=== PATIENT | female | born 1955 | race Hispanic/Latino ===

== ENCOUNTER 2018-08-06 12:43 | Inpatient (IN) | payer BC, OTHER ==
--- NOTE | 2018-08-06 13:35 | ED PDOC ---
HPI: Chest Pain Time Seen by Provider: 08/06/18 13:12 Chief Complaint (Nursing): Chest Pain Chief Complaint (Provider): Chest pain History Per: Patient History/Exam Limitations: no limitations Onset/Duration Of Symptoms: Days (1) Current Symptoms Are (Timing): Still Present Additional History Per: Patient Additional Complaint(s): 63yo female, otherwise well, comes to ER for evaluation of chest pain since last night. Patient states she was at Dr. Melendrez's office for evaluation of the chest pain and the EKG was noted to be abnormal, prompting the ER visit. Patient also reports epigastric abdominal pain as well as nausea and vomiting. She also denies any shortness of breath, leg selling, or diarrhea. No other complaints. PMD: Jeffrey Melendrez Past Medical History Reviewed: Historical Data, Nursing Documentation, Vital Signs Vital Signs: Last Vital Signs Temp 98 F 08/06/18 12:55 Pulse 85 08/06/18 12:55 Resp 18 08/06/18 12:55 BP 135/78 08/06/18 12:55 Pulse Ox 98 08/06/18 12:55 - Medical History PMH: Diverticulitis Denies: Diabetes, HTN - Surgical History Other surgeries: orthopedic surgery - Family History Family History: States: No Known Family Hx - Living Arrangements Living Arrangements: With Family - Immunization History Hx Tetanus Toxoid Vaccination: No Hx Influenza Vaccination: No Hx Pneumococcal Vaccination: No - Home Medications Home Medications: Ambulatory Orders Medication Instructions Recorded Alprazolam [Xanax] 0.5 mg PO Q8 08/06/18 Bisacodyl [Dulcolax] 20 mg PO HS 08/06/18 Omeprazole 40 mg PO DAILY 08/06/18 - Allergies Allergies/Adverse Reactions: Allergies Allergy/AdvReac Type Severity Reaction Status Date / Time No Known Allergies Allergy Verified 08/06/18 12:55 JUDI Risk Score for UA/NSTEMI - JUDI Risk Score Age > 64: NO 3 or more CAD Risk Factors: NO Known CAD (Stenosis greater than 50%): NO Aspirin use in past 7 days: NO Severe Angina: YES EKG ST changes greater than 0.5mm: NO Positive Cardiac Marker: NO JUDI Score: 1 Risk %: 5% Wells Criteria for PE - Wells Criteria for Pulmonary Embolism Clinical Signs and Symptoms of DVT: No P.E is #1 Diagnosis, or Equally Likely: No Heart Rate >100: No Immobilization at least 3 days;Surgery previous 4 weeks: No Previous, objectively diagnosed PE or DVT: No Hemoptysis: No Malignancy w/treatment within 6 months, or palliative: No Total Score: 0 Review of Systems ROS Statement: Except As Marked, All Systems Reviewed And Found Negative Constitutional: Negative for: Fever, Chills Cardiovascular: Positive for: Chest Pain Respiratory: Negative for: Shortness of Breath Gastrointestinal: Positive for: Nausea, Vomiting. Negative for: Diarrhea Neurological: Negative for: Weakness, Numbness Physical Exam - Reviewed Nursing Documentation Reviewed: Yes Vital Signs Reviewed: Yes - Physical Exam Appears: Positive for: Non-toxic, No Acute Distress Head Exam: Positive for: ATRAUMATIC, NORMAL INSPECTION, NORMOCEPHALIC Skin: Positive for: Normal Color Eye Exam: Positive for: Normal appearance Neck: Positive for: Normal, Supple Cardiovascular/Chest: Positive for: Regular Rate, Rhythm, Chest Non Tender Respiratory: Positive for: Normal Breath Sounds. Negative for: Wheezing Gastrointestinal/Abdominal: Positive for: Normal Exam, Soft. Negative for: Tenderness Back: Positive for: Normal Inspection Extremity: Positive for: Normal ROM. Negative for: Pedal Edema Neurologic/Psych: Positive for: Alert, Oriented. Negative for: Motor/Sensory Deficits - Laboratory Results Result Diagrams: 08/07/18 05:04 08/07/18 05:04 - ECG ECG: Positive for: Interpreted By Me, Viewed By Me ECG Rhythm: Positive for: Normal QRS, Sinus Rhythm. Negative for: ST/T Changes Rate: 85 O2 Sat by Pulse Oximetry: 98 (RA) Pulse Ox Interpretation: Normal - Radiology X-Ray: Viewed By Me, Read By Radiologist X-Ray Interpretation: No Acute Disease Medical Decision Making Medical Decision Making: Impression: Chest pain, vomiting Differential: Atypical acs, less likely pancreatitis Plan: -- EKG -- Chest x-ray -- Labs 1536 US Gallbladder ordered due to vomiting and abdominal pain. 1600 Labs reviewed and significant for mild elevation of white blood cells. Patient to be admitted to [facility] for observation. [address] Cifuentes and patient to be admitted under his service. Scribe Attestation: Documented by Lisa Suresh, acting as a scribe for Waldo Hi MD. Provider Scribe Attestation: All medical record entries made by the Scribe were at my direction and personally dictated by me. I have reviewed the chart and agree that the record accurately reflects my personal performance of the history, physical exam, medical decision making, and the department course for this patient. I have also personally directed, reviewed, and agree with the discharge instructions and disposition. Disposition - Clinical Impression Clinical Impression: Acute chest pain, Vomiting - Patient ED Disposition Is Patient to be Admitted: Yes Counseled Patient/Family Regarding: Studies Performed, Diagnosis - Disposition Disposition Time: 16:00 Condition: GUARDED - Pt Status Changed To: Hospital Disposition Of: Observation - POA Present On Arrival: None
[2018-08-06 13:59] LABS: BLOOD UREA NITROGEN 10 mg/dl (7-17); CALCIUM 9.5 mg/dL (8.4-10.2); GFR NON-AFRICAN AMERICAN > 60
[2018-08-06 14:03] LABS: BASO # 0.1 K/uL (0.0-0.2); BASO % 0.7 % (0.0-2.0); EOS % 0.3 % (0.0-4.0); HEMOGLOBIN 14.7 g/dL (12.0-16.0); LYMPH # 1.3 K/uL (1.0-4.3); LYMPH % 8.8 % (20.0-40.0); MEAN CELL VOLUME 95.5 fl (81.0-99.0); MEAN CORPUSCULAR HEMOGLOBIN 30.4 pg (27.0-31.0); MEAN CORPUSCULAR HGB CONC 31.8 g/dL (33.0-37.0); MEAN PLATELET VOLUME 8.6 fl (7.2-11.7); MONO # 0.9 K/uL (0.0-0.8); MONO % 6.3 % (0.0-10.0); NEUT # 12.3 K/uL (1.8-7.0); NEUT % 83.9 % (50.0-75.0); NRBC % 0.1 % (0.0-0.0); PLATELET COUNT 217 K/uL (130-400); RBC 4.84 Mil/uL (3.80-5.20); RED CELL DISTRIBUTION WIDTH 14.1 % (11.5-14.5); WHITE BLOOD COUNT 14.7 K/uL (4.8-10.8)
[2018-08-06 14:11] LABS: B-TYPE NATRIURETIC PEPTIDE 491 pg/ml (0-900)
[2018-08-06 14:34] LABS: ALB/GLOB RATIO 1.3 (1.0-2.1); ALBUMIN 4.2 g/dL (3.5-5.0); BILIRUBIN,DIRECT 0.2 mg/ml (0.0-0.4)
--- NOTE | 2018-08-06 15:22 | RAD ---
Date of service: 08/06/2018 PROCEDURE: CHEST RADIOGRAPH, 1 VIEW HISTORY: chest pain COMPARISON: 01/13/2014 FINDINGS: LUNGS: Clear. PLEURA: No pneumothorax or pleural fluid seen. CARDIOVASCULAR: No aortic atherosclerotic calcification present. No radiographic findings to suggest acute or significant cardiovascular disease. OSSEOUS STRUCTURES: No significant abnormalities. VISUALIZED UPPER ABDOMEN: Normal. OTHER FINDINGS: None. IMPRESSION: No active disease. No acute/significant interval changes.
[2018-08-06 15:56] LABS: BASOPHIL 1 % (0-2); LYMPHOCYTE 11 % (20-50); MONOCYTE 5 % (0-10); NEUTROPHIL 83 % (42-75); PLATELET ESTIMATE NORMAL (NORMAL); TOTAL CELLS COUNTED 100
--- NOTE | 2018-08-06 17:09 | US ---
Date of service: 08/06/2018 HISTORY: epigastric pain vomiting COMPARISON: None. TECHNIQUE: Sonographic evaluation of the right upper quadrant of the abdomen. FINDINGS: LIVER: Measures 13.4 cm in length. Patent portal vein. Portal venous flow: Hepatopetal. Unremarkable echogenicity of the liver parenchyma. No mass. No intrahepatic bile duct dilatation. GALLBLADDER: Cholelithiasis. Negative study for gallbladder wall thickening, pericholecystic fluid, sonographic Littlejohn's sign. Largest stone 1.0 x 1.7 x 1.8 cm. COMMON BILE DUCT: Measures 2.9 mm. No stones. No dilatation. PANCREAS: Obscured by overlying bowel gas. Non diagnostic assessment of the pancreas RIGHT KIDNEY: Measures 5.2 x 10.7 cm in length. Normal echogenicity. No calculus, mass, or hydronephrosis. AORTA: No aneurysmal dilatation. IVC: Unremarkable. OTHER FINDINGS: None . IMPRESSION: Cholelithiasis. No sonographic evidence of acute cholecystitis. Limitations of the current examination: Nondiagnostic study of the pancreas.
[2018-08-06] MEDS ORDERED: Iohexol 240 (50 ml) PO ONE (17:57)
--- NOTE | 2018-08-06 18:26 | CP.PCM.HP ---
History of Present Illness - History of Present Illness History of Present Illness: 63 yo F with hx GERD, diverticulitis, COPD, arthritis, trigger finger, anxiety presented to ED today after being sent by PMD for evaluation of chest pain. Patient states chest pain began around 10 pm last night, when she was not doing anything strenuous, and kept her from falling asleep. Describes the pain as sharp, located substernally, on either side of midline. Pain does not radiate to the back, jaw, neck or either extremity, and she was not diaphoretic. About 2 hrs after onset of chest pain, she began vomiting clear, nonbloody, nonbilious emesis, which she states happened about every hour until morning. She does not associate this vomiting with food, as her last meal was around 4:30 pm, and her last bowel movement was around 2 pm. Last night, she took prilosec, but it did not help, and she did not find anything alleviated or exacerbated the pain/nausea. Normally at baseline, she can walk 7-10 blocks without getting ti red or short of breath. Of note, pt relates she had similar (but less strong) pain about 6 weeks ago, and saw a rail director who wanted to perform an EGD but this has not happened yet due to pt's schedule. Today, she went to her PMDs office regarding the chest pain/nausea/vomiting, and an EKG was done, which patient was told was abnormal, and she was referred to ED. EKG from PMD was reviewed - no acute specific changes are able to be appreciated due to overall quality of exam. PMD: Dr. Camacho Med hx: GERD, diverticulitis, COPD, arthritis, trigger finger, anxiety Surg hx: L foot surgery after breaking bones in feet Soc hx: 15 cig/day since age 17 (46 yrs); denies alcohol or illicit drug use Family hx: mother w/ double CABG, diabetes, breast ca; no other hx cardiac disorders in family Allergies: NKDA Meds: xanax 0.5 q8h for anxiety, dulcolax, prilosec In ED: vitals stable, BP 135/78, HR 97, afebrile at 98F, O2 on RA 98, RR 18 Troponin neg x1 EKG done in ED: sinus at 86 bpm, no specific acute ST changes Lipase 51 proBNP 491 Mild leukocytosis at 14.7 No marked electrolyte derangement CXR : no active disease Gallbladder u/s - pending read Present on Admission - Present on Admission Any Indicators Present on Admission: No Review of Systems - Review of Systems All systems: reviewed and no additional remarkable complaints except - Constitutional Constitutional: absent: Excessive Sweating - Cardiovascular Cardiovascular: Chest Pain. absent: Diaphoresis, Dyspnea - Gastrointestinal Gastrointestinal: Abdominal Pain, Constipation, Heartburn, Vomiting. absent: Coffee Ground Emesis Past Patient History - Past Social History Smoking Status: Heavy Smoker > 10 Cigarettes Daily Alcohol: None Home Situation {Lives}: Alone - CARDIAC Hx Hypertension: No - PULMONARY Hx Tuberculosis: No - GASTROINTESTINAL Hx Diverticulitis: Yes - PSYCHIATRIC Hx Substance Use: No - ANESTHESIA Hx Anesthesia: Yes Hx Anesthesia Reactions: No Hx Malignant Hyperthermia: No Meds Allergies/Adverse Reactions: Allergies Allergy/AdvReac Type Severity Reaction Status Date / Time No Known Allergies Allergy Verified 08/06/18 12:55 Physical Exam - Constitutional Appears: Non-toxic, No Acute Distress - Head Exam Head Exam: ATRAUMATIC, NORMAL INSPECTION - Eye Exam Eye Exam: Normal appearance - ENT Exam ENT Exam: Mucous Membranes Dry. absent: Mucous Membranes Moist - Neck Exam Neck exam: Positive for: Full Rom Additional comments: supple - Respiratory Exam Respiratory Exam: Prolonged Expiratory Phase Additional comments: air movement equal bilaterally - Cardiovascular Exam Cardiovascular Exam: REGULAR RHYTHM, +S1, +S2 - GI/Abdominal Exam GI & Abdominal Exam: Normal Bowel Sounds, Soft, Tenderness (epigastrum and RUQ) - Extremities Exam Extremities exam: Positive for: normal capillary refill, normal inspection. Negative for: calf tenderness, pedal edema - Back Exam Back exam: NORMAL INSPECTION. absent: CVA tenderness (L), CVA tenderness (R) - Neurological Exam Neurological exam: Alert, Oriented x3 - Skin Skin Exam: Dry, Warm Results - Vital Signs Recent Vital Signs: Last Vital Signs Temp 98 F 08/06/18 12:55 Pulse 85 08/06/18 16:53 Resp 18 08/06/18 12:55 BP 135/78 08/06/18 12:55 Pulse Ox 98 08/06/18 16:53 - Labs Result Diagrams: 08/06/18 13:40 08/06/18 13:40 Labs: Laboratory Results - last 24 hr 08/06/18 08/06/18 08/06/18 13:40 13:40 14:19 WBC 14.7 H RBC 4.84 Hgb 14.7 Hct 46.3 MCV 95.5 MCH 30.4 MCHC 31.8 L RDW 14.1 Plt Count 217 MPV 8.6 Neut % (Auto) 83.9 H Lymph % (Auto) 8.8 L [place] % (Auto) 6.3 Eos % (Auto) 0.3 Baso % (Auto) 0.7 Neut # (Auto) 12.3 H Lymph # (Auto) 1.3 [place] # (Auto) 0.9 H Eos # (Auto) 0.0 Baso # (Auto) 0.1 Neutrophils % (Manual) 83 H Lymphocytes % (Manual) 11 L Monocytes % (Manual) 5 Basophils % (Manual) 1 Platelet Estimate Normal RBC Morphology Normal Sodium 138 Potassium 4.9 Chloride 109 H Carbon Dioxide 23 Anion Gap 11 BUN 10 Creatinine 0.9 Est GFR ( Amer) > 60 Est GFR (Non-Af Amer) > 60 Random Glucose 113 H Calcium 9.5 Total Bilirubin 0.8 Direct Bilirubin 0.2 AST 18 ALT 18 Alkaline Phosphatase 112 Troponin I < 0.0120 NT-Pro-B Natriuret Pep 491 Total Protein 7.5 Albumin 4.2 Globulin 3.3 Albumin/Globulin Ratio 1.3 Lipase 51 Assessment & Plan - Assessment and Plan (Free Text) Assessment: 63 yo F with hx GERD, diverticulitis, COPD, arthritis, trigger finger, anxiety, admitted for observation due to chest pain, nausea, vomiting; and to rule out ACS. Initial troponin negative, and EKG without specific ST changes. Plan: 1. Chest pain, r/o ACS - Admitted to telemetry; continuous monitoring - Trend troponin Q6 hrs x2 - Repeat EKG in the am 2. Nausea/Vomiting - Improved - Trial liquid diet - Zofran 4 mg Q4h PRN - Gallbladder u/s read pending - CT abd/pelvis with PO contrast - CMP in am 3. Leukocytosis - Mild elevation 14.7 - Possibly secondary to stress response - Follow up on CBC 4. GERD - Protonix 40 mg daily 5. Diverticulitis - CT abd/pelvis with PO contrast 6. prison tobacco use - Nicotine patch 21 mg/24 hrs 7. Anxiety - Resume home dose xanax 0.5 mg Q8h 8. Diet - Trial liquid diet 9. DVT prophylaxis - SCD for now
[2018-08-06] MEDS ORDERED: Iohexol 240 (50 ml) ONE (19:20)
[2018-08-07 05:13] LABS: BASO # 0.1 K/uL (0.0-0.2); BASO % 0.9 % (0.0-2.0); EOS # 0.1 K/uL (0.0-0.7); EOS % 0.6 % (0.0-4.0); HEMOGLOBIN 14.2 g/dL (12.0-16.0); LYMPH # 1.1 K/uL (1.0-4.3); LYMPH % 7.7 % (20.0-40.0); MEAN CELL VOLUME 94.6 fl (81.0-99.0); MEAN CORPUSCULAR HEMOGLOBIN 30.9 pg (27.0-31.0); MEAN CORPUSCULAR HGB CONC 32.6 g/dL (33.0-37.0); MEAN PLATELET VOLUME 8.8 fl (7.2-11.7); MONO # 1.2 K/uL (0.0-0.8); MONO % 8.7 % (0.0-10.0); NEUT # 11.4 K/uL (1.8-7.0); NEUT % 82.1 % (50.0-75.0); RBC 4.59 Mil/uL (3.80-5.20); WHITE BLOOD COUNT 13.9 K/uL (4.8-10.8)
[2018-08-07 05:27] LABS: ALB/GLOB RATIO 1.1 (1.0-2.1); ALBUMIN 3.8 g/dL (3.5-5.0); ALT/SGPT 24 U/L (9-52); AST/SGOT 28 U/L (14-36); BLOOD UREA NITROGEN 8 mg/dl (7-17); GFR NON-AFRICAN AMERICAN > 60
--- NOTE | 2018-08-07 06:55 | CARD ---
APPROVED REPORT Date of service: 08/06/2018 EKG Measurement Heart [id number] <Conclusion> Sinus rhythm with short DE with occasional premature ventricular complexes Otherwise normal ECG
--- NOTE | 2018-08-07 07:16 | CP.PCM.PN ---
Subjective - Date & Time of Evaluation Date of Evaluation: 08/07/18 Time of Evaluation: 06:45 - Subjective Subjective: pt alert oriented x3 no chest pain no vomiting no nausea some muscle discomfort below the ribs from vomiting over the weekend Objective - Vital Signs/Intake and Output Vital Signs (last 24 hours): Temp Pulse Resp BP Pulse Ox 99.4 F 87 20 109/70 94 L 08/07/18 05:00 08/07/18 05:00 08/07/18 05:00 08/07/18 05:00 08/07/18 05:00 - Medications Medications: Current Medications Alprazolam (Xanax) 0.5 mg PO Q8 RON Last Admin: 08/07/18 00:58 Dose: 0.5 mg Nicotine (Nicoderm Cq) 1 patch TD DAILY [facility] Ondansetron HCl (Zofran Inj) 4 mg IVP Q4 PRN PRN Reason: Nausea/Vomiting Pantoprazole Sodium (Protonix Ec Tab) 40 mg PO DAILY RON - Labs Labs: 08/07/18 05:04 08/07/18 05:04 - Constitutional Appears: No Acute Distress - Eye Exam Eye Exam: EOMI, Normal appearance - ENT Exam ENT Exam: Mucous Membranes Moist - Neck Exam Neck Exam: Normal Inspection. absent: Meningismus, Tenderness, Thyromegaly - Respiratory Exam Respiratory Exam: Chest Wall Tenderness, Clear to Ausculation Bilateral. absen t: Rales, Rhonchi, Wheezes, Respiratory Distress - Cardiovascular Exam Cardiovascular Exam: REGULAR RHYTHM - GI/Abdominal Exam GI & Abdominal Exam: Soft, Normal Bowel Sounds - Extremities Exam Extremities Exam: Normal Capillary Refill, Normal Inspection. absent: Calf Tenderness, Pedal Edema, Tenderness - Back Exam Back Exam: NORMAL INSPECTION - Neurological Exam Neurological Exam: Alert, Awake, Oriented x3 - Psychiatric Exam Psychiatric exam: Normal Affect - Skin Skin Exam: Normal Color, Warm Assessment and Plan (1) Chest pain Status: Acute (2) Gastritis Status: Acute (3) Vomiting Status: Resolved - Assessment and Plan (Free Text) Assessment: troponin negative x 3 await cardiac eval if cleared cand go home return to the office to see Dr Melendrez
[2018-08-07] MEDS: Pantoprazole 40 mg EC Tab PO SCH (09:06)
--- NOTE | 2018-08-07 09:50 | CP.PCM.CON ---
History of Present Illness - History of Present Illness History of Present Illness: THE PATIENT IS A 63 YEAR OLD FEMALE WITH A HISTORY OF GERDS, DIVERTICULOSIS, ARTHRITIS AND ANXIETY. SHE IS NOW ADMITTED WITH ABDOMINAL PAIN, ANUSEA AND VOMITING AND ALSO HAD CHEST PAIN ALONG TO LOWER RIB CAGE AREA THAT SHE DESCRIBES A SORENESS. IT IS NOT PRESENT NOW AND THERE WASN'T ANY RADIATION. SHE HAD SIMILAR PAIN ABOUT SIX WEEKS AGO. SHE DOES NOT HAVE A HISTORY OF CAD OR TYPICAL CHEST PAIN. I WAS ASKED TO SEE HER FOR THE CHEST PAIN. Past Patient History - Past Medical History & Family History Past Medical History?: Yes - Past Social History Smoking Status: Heavy Smoker > 10 Cigarettes Daily - CARDIAC Hx Cardiac Disorders: No - PULMONARY Hx Respiratory Disorders: Yes - NEUROLOGICAL Hx Neurological Disorder: No - HEENT Hx HEENT Problems: No - RENAL Hx Chronic Kidney Disease: No - ENDOCRINE/METABOLIC Hx Endocrine Disorders: No - HEMATOLOGICAL/ONCOLOGICAL Hx Blood Disorders: No - INTEGUMENTARY Hx Dermatological Problems: No - MUSCULOSKELETAL/RHEUMATOLOGICAL Hx Musculoskeletal Disorders: Yes - GASTROINTESTINAL Hx Gastrointestinal Disorders: Yes Hx Diverticulitis: Yes Hx Gastroesophageal Reflux: Yes - GENITOURINARY/GYNECOLOGICAL Hx Genitourinary Disorders: No - PSYCHIATRIC Hx Psychophysiologic Disorder: Yes - SURGICAL HISTORY Hx Surgeries: Yes Other/Comment: left foot sx - ANESTHESIA Hx Anesthesia: Yes Hx Anesthesia Reactions: No Hx Malignant Hyperthermia: No Meds Home Medications: Home Medication List Medication Instructions Recorded Confirmed Type Amoxicillin/Clavulanate [Augmentin 1 tab PO Q12 #14 tab 08/12/18 Rx 875 MG-125 MG] oxyCODONE/Acetaminophen [Percocet 1 ea PO Q4 PRN #30 tab 08/12/18 Rx 5/325 mg Tab] Allergies/Adverse Reactions: Allergies Allergy/AdvReac Type Severity Reaction Status Date / Time No Known Allergies Allergy Verified 08/06/18 12:55 - Medications Medications: Current Medications Alprazolam (Xanax) 0.5 mg PO Q8 [facility] Last Admin: 08/07/18 09:06 Dose: 0.5 mg Nicotine (Nicoderm Cq) 1 patch TD DAILY [facility] Last Admin: 08/07/18 09:06 Dose: 1 patch Ondansetron HCl (Zofran Inj) 4 mg IVP Q4 PRN PRN Reason: Nausea/Vomiting Pantoprazole Sodium (Protonix Ec Tab) 40 mg PO DAILY [facility] Last Admin: 08/07/18 09:06 Dose: 40 mg Physical Exam - Respiratory Exam Respiratory Exam: Clear to Auscultation Bilateral - Cardiovascular Exam Cardiovascular Exam: REGULAR RHYTHM, +S1, +S2 - Extremities Exam Extremities exam: Positive for: normal inspection - Additional Findings Additional findings: EKG NSR, I PVC TROPONINS NEGATIVE X [address] REPORT PENDING ABDOMINAL US CHOLELITHIASIS WITHOUT CHOLECYSTITIS Results - Vital Signs Recent Vital Signs: Last Vital Signs Temp 99.8 F H 08/07/18 09:13 Pulse 88 08/07/18 09:13 Resp 18 08/07/18 09:13 BP 118/66 08/07/18 09:13 Pulse Ox 96 08/07/18 09:13 - Labs Result Diagrams: 08/12/18 08:33 08/12/18 05:25 Labs: Laboratory Results - last 24 hr 08/06/18 08/06/18 08/06/18 13:40 13:40 14:19 WBC 14.7 H RBC 4.84 Hgb 14.7 Hct 46.3 MCV 95.5 MCH 30.4 MCHC 31.8 L RDW 14.1 Plt Count 217 MPV 8.6 Neut % (Auto) 83.9 H Lymph % (Auto) 8.8 L [place] % (Auto) 6.3 Eos % (Auto) 0.3 Baso % (Auto) 0.7 Neut # (Auto) 12.3 H Lymph # (Auto) 1.3 [place] # (Auto) 0.9 H Eos # (Auto) 0.0 Baso # (Auto) 0.1 Neutrophils % (Manual) 83 H Lymphocytes % (Manual) 11 L Monocytes % (Manual) 5 Basophils % (Manual) 1 Platelet Estimate Normal RBC Morphology Normal Sodium 138 Potassium 4.9 Chloride 109 H Carbon Dioxide 23 Anion Gap 11 BUN 10 Creatinine 0.9 Est GFR ( Amer) > 60 Est GFR (Non-Af Amer) > 60 Random Glucose 113 H Calcium 9.5 Total Bilirubin 0.8 Direct Bilirubin 0.2 AST 18 ALT 18 Alkaline Phosphatase 112 Troponin I < 0.0120 NT-Pro-B Natriuret Pep 491 Total Protein 7.5 Albumin 4.2 Globulin 3.3 Albumin/Globulin Ratio 1.3 Lipase 51 08/07/18 08/07/18 08/07/18 01:13 05:04 05:04 WBC 13.9 H RBC 4.59 Hgb 14.2 Hct 43.4 MCV 94.6 MCH 30.9 MCHC 32.6 L RDW 14.0 Plt Count 205 MPV 8.8 Neut % (Auto) 82.1 H Lymph % (Auto) 7.7 L [place] % (Auto) 8.7 Eos % (Auto) 0.6 Baso % (Auto) 0.9 Neut # (Auto) 11.4 H Lymph # (Auto) 1.1 [place] # (Auto) 1.2 H Eos # (Auto) 0.1 Baso # (Auto) 0.1 Neutrophils % (Manual) Lymphocytes % (Manual) Monocytes % (Manual) Basophils % (Manual) Platelet Estimate RBC Morphology Sodium 136 Potassium 4.1 Chloride 104 Carbon Dioxide 25 Anion Gap 11 BUN 8 Creatinine 0.8 Est GFR ( Amer) > 60 Est GFR (Non-Af Amer) > 60 Random Glucose 112 H Calcium 9.0 Total Bilirubin 1.2 Direct Bilirubin AST 28 ALT 24 Alkaline Phosphatase 103 Troponin I < 0.0120 < 0.0120 NT-Pro-B Natriuret Pep Total Protein 7.2 Albumin 3.8 Globulin 3.4 Albumin/Globulin Ratio 1.1 Lipase Assessment & Plan - Assessment and Plan (Free Text) Assessment: CHEST PAIN-CHEST PAIN FREE NOW AND WITHOUT ANY ACUTE CHANGES ON EKG AND TROPONINS ARE NEGATIVE ABDOMINAL PAIN ANXIETY Plan: THE PATIENT WAS ADMITTED TO ON TELEMETRY EKGS AND TROPONINS WERE ORDERED STRESS TEST WAS RECOMMENDED BUT PATIENT DOESN'T WANT TO DO IT TODAY-IT CAN BE DONE OUT PATIENT ASA GIVEN IN ER AND WILL CONTINUE ASA 81 MGS DAILY UNTIL SHE HAS HER STRESS TEST
--- NOTE | 2018-08-07 12:48 | CT ---
Date of service: 08/06/2018 PROCEDURE: CT Abdomen and Pelvis with contrast HISTORY: abd pain, vomiting, hx divertivulitis COMPARISON: None available. TECHNIQUE: CT scan of the abdomen and pelvis was performed without administration of intravenous contrast. Oral contrast was administered. Coronal and sagittal reformatted images were obtained. Radiation dose: Total exam DLP = 989.22 mGy-cm. This CT exam was performed using one or more of the following dose reduction techniques: Automated exposure control, adjustment of the mA and/or kV according to patient size, and/or use of iterative reconstruction technique. FINDINGS: LOWER THORAX: There is dependent atelectasis in the lung bases and subsegmental atelectasis in the left lower lobe. LIVER: Normal in size with homogeneous enhancement. No gross lesion or ductal dilatation. GALLBLADDER AND BILE DUCTS: The gallbladder is distended and there are non cord C5 gallstones. There is diffuse gallbladder wall thickening and edema with significant pericholecystic inflammatory fat stranding. PANCREAS: Normal in size with homogeneous enhancement. No gross lesion or ductal dilatation. SPLEEN: Normal in size and appearance. ADRENALS: No discrete nodule. KIDNEYS AND URETERS: Normal in size with homogeneous enhancement. No hydronephrosis. No solid mass. VASCULATURE: No aortic aneurysm. BOWEL: Evaluation of the bowel is limited in the absence of oral contrast. The small bowel loops are normal in caliber. There is left colonic diverticulosis without CT evidence for acute diverticulitis. No bowel wall thickening or obstruction. APPENDIX: Normal appendix. PERITONEUM: No free fluid. No free air. LYMPH NODES: No enlarged lymph nodes. BLADDER: Well distended and normal in appearance. REPRODUCTIVE: The uterus is normal in size. BONES: No acute fracture. Within normal limits for the patient's age. OTHER FINDINGS: There is a small sliding hiatal hernia. IMPRESSION: Acute calculus cholecystitis. Colonic diverticulosis without CT evidence for acute diverticulitis. A preliminary report was provided by [facility].
--- NOTE | 2018-08-07 14:01 | CP.PCM.CON ---
<Jeff Aguilar - Last Filed: 08/07/18 13:57> History of Present Illness - History of Present Illness History of Present Illness: Surgery 63 F w PMH of anxiety and diverticulosis came with epigastric abdominal pain that started 3 days ago. Pain is located on upper abdomen and RUQ. Pain is exacerbated with food. Had multiple episodes of vomiting. Non bloody non bilious. Denies fever, SOB, Diarrhea, hematochezia, hematemesis, Dysuria, hematuria, recent weight loss. Pt had similar episodes 6 month ago. She saw a emergency response officer who wanted to perform an EGD but this has not happened yet due to pt's schedule. Surgery is consulted to evaluated for cholecystitis Med hx: GERD, diverticulitis, COPD, arthritis, trigger finger, anxiety Surg hx: L foot surgery after breaking bones in feet Soc hx: 15 cig/day since age 17 (46 yrs); denies alcohol or illicit drug use Family hx: mother w/ double CABG, diabetes, breast ca; no other hx cardiac disorders in family Allergies: NKDA Meds: xanax 0.5 q8h for anxiety, dulcolax, prilosec Review of Systems - Review of Systems Review of Systems: See HPI Past Patient History - Past Medical History & Family History Past Medical History?: Yes - Past Social History Smoking Status: Heavy Smoker > 10 Cigarettes Daily - CARDIAC Hx Hypertension: No - PULMONARY Hx Respiratory Disorders: Yes - NEUROLOGICAL Hx Neurological Disorder: No - HEENT Hx HEENT Problems: No - RENAL Hx Chronic Kidney Disease: No - ENDOCRINE/METABOLIC Hx Endocrine Disorders: No - HEMATOLOGICAL/ONCOLOGICAL Hx Blood Disorders: No - INTEGUMENTARY Hx Dermatological Problems: No - MUSCULOSKELETAL/RHEUMATOLOGICAL Hx Musculoskeletal Disorders: Yes - GASTROINTESTINAL Hx Diverticulitis: Yes - GENITOURINARY/GYNECOLOGICAL Hx Genitourinary Disorders: No - PSYCHIATRIC Hx Psychophysiologic Disorder: Yes - SURGICAL HISTORY Hx Surgeries: Yes Other/Comment: left foot sx - ANESTHESIA Hx Anesthesia: Yes Hx Anesthesia Reactions: No Hx Malignant Hyperthermia: No Meds Allergies/Adverse Reactions: Allergies Allergy/AdvReac Type Severity Reaction Status Date / Time No Known Allergies Allergy Verified 08/06/18 12:55 - Medications Medications: Current Medications Acetaminophen (Tylenol 325mg Tab) 650 mg PO Q6 PRN PRN Reason: Pain, Mild (1-3) Last Admin: 08/07/18 10:05 Dose: 650 mg Alprazolam (Xanax) 0.5 mg PO Q8 [facility] Last Admin: 08/07/18 09:06 Dose: 0.5 mg Aspirin (Ecotrin) 81 mg PO DAILY [facility] Ceftriaxone Sodium 1 gm/ (Sodium Chloride) 100 mls @ 100 mls/hr IVPB DAILY [facility]; Protocol Nicotine (Nicoderm Cq) 1 patch TD DAILY [facility] Last Admin: 08/07/18 09:06 Dose: 1 patch Ondansetron HCl (Zofran Inj) 4 mg IVP Q4 PRN PRN Reason: Nausea/Vomiting Pantoprazole Sodium (Protonix Ec Tab) 40 mg PO DAILY [facility] Last Admin: 08/07/18 09:06 Dose: 40 mg Physical Exam - Constitutional Appears: No Acute Distress - Head Exam Head Exam: ATRAUMATIC, NORMAL INSPECTION, NORMOCEPHALIC - Eye Exam Eye Exam: EOMI, Normal appearance, PERRL Pupil Exam: NORMAL ACCOMODATION, PERRL - ENT Exam ENT Exam: Mucous Membranes Moist, Normal Exam - Neck Exam Neck exam: Positive for: Normal Inspection - Respiratory Exam Respiratory Exam: NORMAL BREATHING PATTERN - Cardiovascular Exam Cardiovascular Exam: REGULAR RHYTHM - GI/Abdominal Exam GI & Abdominal Exam: Soft, Tenderness. absent: Distended, Firm, Guarding, Hernia, Rebound (RUQ TTP ), Rigid - Extremities Exam Extremities exam: Positive for: full ROM, normal inspection - Back Exam Back exam: NORMAL INSPECTION - Neurological Exam Neurological exam: Alert, Normal Gait, Oriented x3, Reflexes Normal - Psychiatric Exam Psychiatric exam: Normal Affect, Normal Mood - Skin Skin Exam: Dry, Intact, Normal Color, Warm Results - Vital Signs Recent Vital Signs: Last Vital Signs Temp 99.8 F H 08/07/18 09:13 Pulse 85 08/07/18 12:53 Resp 18 08/07/18 09:13 BP 118/66 08/07/18 09:13 Pulse Ox 98 08/07/18 12:53 - Labs Result Diagrams: 08/07/18 05:04 08/07/18 05:04 Labs: Laboratory Results - last 24 hr 08/06/18 08/06/18 08/06/18 13:40 13:40 14:19 WBC 14.7 H RBC 4.84 Hgb 14.7 Hct 46.3 MCV 95.5 MCH 30.4 MCHC 31.8 L RDW 14.1 Plt Count 217 MPV 8.6 Neut % (Auto) 83.9 H Lymph % (Auto) 8.8 L [place] % (Auto) 6.3 Eos % (Auto) 0.3 Baso % (Auto) 0.7 Neut # (Auto) 12.3 H Lymph # (Auto) 1.3 [place] # (Auto) 0.9 H Eos # (Auto) 0.0 Baso # (Auto) 0.1 Neutrophils % (Manual) 83 H Lymphocytes % (Manual) 11 L Monocytes % (Manual) 5 Basophils % (Manual) 1 Platelet Estimate Normal RBC Morphology Normal Sodium 138 Potassium 4.9 Chloride 109 H Carbon Dioxide 23 Anion Gap 11 BUN 10 Creatinine 0.9 Est GFR ( Amer) > 60 Est GFR (Non-Af Amer) > 60 Random Glucose 113 H Calcium 9.5 Total Bilirubin 0.8 Direct Bilirubin 0.2 AST 18 ALT 18 Alkaline Phosphatase 112 Troponin I < 0.0120 NT-Pro-B Natriuret Pep 491 Total Protein 7.5 Albumin 4.2 Globulin 3.3 Albumin/Globulin Ratio 1.3 Lipase 51 08/07/18 08/07/18 08/07/18 01:13 05:04 05:04 WBC 13.9 H RBC 4.59 Hgb 14.2 Hct 43.4 MCV 94.6 MCH 30.9 MCHC 32.6 L RDW 14.0 Plt Count 205 MPV 8.8 Neut % (Auto) 82.1 H Lymph % (Auto) 7.7 L [place] % (Auto) 8.7 Eos % (Auto) 0.6 Baso % (Auto) 0.9 Neut # (Auto) 11.4 H Lymph # (Auto) 1.1 [place] # (Auto) 1.2 H Eos # (Auto) 0.1 Baso # (Auto) 0.1 Neutrophils % (Manual) Lymphocytes % (Manual) Monocytes % (Manual) Basophils % (Manual) Platelet Estimate RBC Morphology Sodium 136 Potassium 4.1 Chloride 104 Carbon Dioxide 25 Anion Gap 11 BUN 8 Creatinine 0.8 Est GFR ( Amer) > 60 Est GFR (Non-Af Amer) > 60 Random Glucose 112 H Calcium 9.0 Total Bilirubin 1.2 Direct Bilirubin AST 28 ALT 24 Alkaline Phosphatase 103 Troponin I < 0.0120 < 0.0120 NT-Pro-B Natriuret Pep Total Protein 7.2 Albumin 3.8 Globulin 3.4 Albumin/Globulin Ratio 1.1 Lipase Assessment & Plan - Assessment and Plan (Free Text) Assessment: CHolecystitis Leukocytosis 15k -NPO -IVF -ABX -pain/nausea control -Possible OR Will DW Dr. Glover <Tommy Armijo - Last Filed: 08/07/18 16:56> History of Present Illness - History of Present Illness History of Present Illness: Patient was seen and examined at the bedside. Agree with resident's note above. Meds - Medications Medications: Current Medications Acetaminophen (Tylenol 325mg Tab) 650 mg PO Q6 PRN PRN Reason: Pain, Mild (1-3) Last Admin: 08/07/18 16:31 Dose: 650 mg Alprazolam (Xanax) 0.5 mg PO Q8 [facility] Last Admin: 08/07/18 16:32 Dose: 0.5 mg Aspirin (Ecotrin) 81 mg PO DAILY [facility] Hydromorphone HCl (Dilaudid) 0.5 mg IVP Q4 PRN PRN Reason: Pain, severe (8-10) Dextrose/Sodium Chloride (Dextrose 5%/0.45% Ns 1000 Ml) 1,000 mls @ 125 mls/hr IV .Q8H [facility] Stop: 08/08/18 14:14 Last Admin: 08/07/18 16:25 Dose: 125 mls/hr Ampicillin Sodium/Sulbactam (Sodium 1.5 gm/ Sodium Chloride) 100 mls @ 100 mls /hr IVPB Q6 [facility]; Protocol Nicotine (Nicoderm Cq) 1 patch TD DAILY [facility] Last Admin: 08/07/18 09:06 Dose: 1 patch Ondansetron HCl (Zofran Inj) 4 mg IVP Q4 PRN PRN Reason: Nausea/Vomiting Pantoprazole Sodium (Protonix Ec Tab) 40 mg PO DAILY [facility] Last Admin: 08/07/18 09:06 Dose: 40 mg Physical Exam - GI/Abdominal Exam Additional comments: soft, RUQ tenderness, ND, BS+, no rebound, no guarding, positive Littlejohn's sign Results - Vital Signs Recent Vital Signs: Last Vital Signs Temp 97.9 F 08/07/18 16:46 Pulse 84 08/07/18 16:46 Resp 16 08/07/18 16:46 BP 112/74 08/07/18 16:46 Pulse Ox 99 08/07/18 16:46 - Labs Result Diagrams: 08/07/18 05:04 08/07/18 05:04 Labs: Laboratory Results - last 24 hr 08/07/18 08/07/18 08/07/18 01:13 05:04 05:04 WBC 13.9 H RBC 4.59 Hgb 14.2 Hct 43.4 MCV 94.6 MCH 30.9 MCHC 32.6 L RDW 14.0 Plt Count 205 MPV 8.8 Neut % (Auto) 82.1 H Lymph % (Auto) 7.7 L [place] % (Auto) 8.7 Eos % (Auto) 0.6 Baso % (Auto) 0.9 Neut # (Auto) 11.4 H Lymph # (Auto) 1.1 [place] # (Auto) 1.2 H Eos # (Auto) 0.1 Baso # (Auto) 0.1 Sodium 136 Potassium 4.1 Chloride 104 Carbon Dioxide 25 Anion Gap 11 BUN 8 Creatinine 0.8 Est GFR ( Amer) > 60 Est GFR (Non-Af Amer) > 60 Random Glucose 112 H Calcium 9.0 Total Bilirubin 1.2 AST 28 ALT 24 Alkaline Phosphatase 103 Troponin I < 0.0120 < 0.0120 Total Protein 7.2 Albumin 3.8 Globulin 3.4 Albumin/Globulin Ratio 1.1 - Imaging and Cardiology CT scan - abdomen Status: Image reviewed by me, Report reviewed by me Assessment & Plan - Assessment and Plan (Free Text) Plan: - Clear liquid diet - Stop Rocephine, start Unasyn - Pain control - For stress test tomorrow - If patient is cleared by cardiology will likely do cholecystectomy on 08/09/18 - Repeat labs in am - Will follow - Hold any anticoagulation
[2018-08-07] MEDS: Dextrose 5%/0.45% NS 1,000 ML IV SCH ×2 (16:25→23:20)
--- NOTE | 2018-08-07 20:36 | CARD ---
APPROVED REPORT Date of service: 08/07/2018 EXAM: Two-dimensional and M-mode echocardiogram with Doppler and color Doppler. Other Information Quality : GoodRhythm : NSR INDICATION Chest Pain 2D DIMENSIONS IVSd0.98 (0.7-1.1cm)LVDd4.53 (3.9-5.9cm) LVOT Diameter2.35 (1.8-2.4cm)PWd0.94 (0.7-1.1cm) IVSs1.18 (0.8-1.2cm)LVDs3.36 (2.5-4.0cm) FS (%) 25.8 %PWs1.24 (0.8-1.2cm) M-Mode DIMENSIONS Left Atrium (MM)4.50 (2.5-4.0cm)IVSd1.00 (0.7-1.1cm) Aortic Root2.88 (2.2-3.7cm)LVDd5.26 (4.0-5.6cm) Aortic Cusp Exc.1.97 (1.5-2.0cm)PWd1.03 (0.7-1.1cm) IVSs1.47 cmFS (%) 30 % LVDs3.68 (2.0-3.8cm)PWs1.26 cm Aortic Valve AoV Peak Jteqpcbf387.0cm/Griselda Peak GR.12mmHgLVOT Peak Xkdkozoh011.2cm/s LVOT VTI19.64cmAVA (VMAX)1.30cm2 Mitral Valve MV E Ndrupini16.8cm/sMV DECEL PCPN565jkDG A Vxrujcog69.8cm/s MV ZMA10fcF/A ratio1.0MVA (PHT)2.69cm2 TDI Lateral E' Peak V12.22cm/sMedial E' Peak V6.19cm/sE/Lateral E'6.0 E/Medial E'11.8 Tricuspid Valve TR Peak Sfewuemc451wm/sRAP LXURFQOI29pkJbUU Peak Gr.18mmHg IPHO52kcXo LEFT VENTRICLE The left ventricle is normal size. There is normal left ventricular wall thickness. The left ventricular systolic function is normal. The estimated ejection fraction is 55-60% No regional wall motion abnormalities noted.. Transmitral Doppler flow pattern is Grade I-abnormal relaxation pattern. No left ventricle thrombus noted on this study. There is no ventricular septal defect visualized. There is no left ventricular aneurysm. There is no mass noted in the left ventricle. RIGHT VENTRICLE The right ventricle is normal size. There is normal right ventricular wall thickness. The right ventricular systolic function is normal. ATRIA The left atrium is mildly dilated. The right atrium size is normal. The interatrial septum is intact with no evidence for an atrial septal defect. AORTIC VALVE The aortic valve is normal in structure. No aortic regurgitation is present. There is no aortic valvular stenosis. There is no aortic valvular vegetation. MITRAL VALVE The mitral valve is normal in structure. There is no evidence of mitral valve prolapse. There is no mitral valve stenosis. There is no mitral valve regurgitation noted. TRICUSPID VALVE The tricuspid valve is normal in structure. There is mild tricuspid valve regurgitation noted. RVSP is calculated at 28 mm Hg. There is no tricuspid valve prolapse or vegetation. There is no tricuspid valve stenosis. PULMONIC VALVE The pulmonary valve is normal in structure. There is no pulmonic valvular regurgitation. There is no pulmonic valvular stenosis. GREAT VESSELS The aortic root is normal in size. The ascending aorta is normal in size. The pulmonary artery is normal. The IVC is normal in size and collapses >50% with inspiration. PERICARDIAL EFFUSION There is no pericardial effusion. There is no pleural effusion. <Conclusion> The estimated ejection fraction is 55-60% Transmitral Doppler flow pattern is Grade I-abnormal relaxation pattern. The left atrium is mildly dilated. There is mild tricuspid valve regurgitation noted. RVSP is calculated at 28 mm Hg.
--- NOTE | 2018-08-07 20:49 | CARD ---
APPROVED REPORT Date of service: 08/07/2018 EKG Measurement Heart [id number] <Conclusion> Normal sinus rhythm Normal ECG
[2018-08-08 06:11] LABS: BASO # 0.1 K/uL (0.0-0.2); BASO % 1.1 % (0.0-2.0); EOS # 0.3 K/uL (0.0-0.7); EOS % 2.7 % (0.0-4.0); HEMOGLOBIN 14.1 g/dL (12.0-16.0); LYMPH # 1.2 K/uL (1.0-4.3); LYMPH % 10.4 % (20.0-40.0); MEAN CELL VOLUME 94.7 fl (81.0-99.0); MEAN CORPUSCULAR HGB CONC 32.7 g/dL (33.0-37.0); MEAN PLATELET VOLUME 8.9 fl (7.2-11.7); MONO % 8.1 % (0.0-10.0); NEUT # 9.2 K/uL (1.8-7.0); NEUT % 77.7 % (50.0-75.0); NRBC % 0.2 % (0.0-0.0); RBC 4.56 Mil/uL (3.80-5.20); RED CELL DISTRIBUTION WIDTH 13.9 % (11.5-14.5); WHITE BLOOD COUNT 11.8 K/uL (4.8-10.8)
[2018-08-08 06:21] LABS: INR 1.4; PROTHROMBIN TIME 16.2 Seconds (9.8-13.1)
[2018-08-08 06:22] LABS: ALB/GLOB RATIO 1.1 (1.0-2.1); ALBUMIN 3.7 g/dL (3.5-5.0); ALT/SGPT 29 U/L (9-52); AST/SGOT 25 U/L (14-36); BLOOD UREA NITROGEN 9 mg/dl (7-17); CALCIUM 9.1 mg/dL (8.4-10.2); GFR NON-AFRICAN AMERICAN > 60
[2018-08-08 06:24] LABS: PARTIAL THROMBOPLASTIN TIME 30.4 Seconds (25.6-37.1)
[2018-08-08] MEDS: Pantoprazole 40 mg EC Tab PO SCH (08:09)
[2018-08-08] MEDS: Dextrose 5%/0.45% NS 1,000 ML IV SCH (08:15)
--- NOTE | 2018-08-08 09:31 | PN ---
DATE: 08/08/2018 LOCATION: The patient is admitted to room 401, bed 2. SUBJECTIVE: Ms. Mabry states that she still has significant pain, however, now it is in the right upper quadrant. She still admits to pain in the low epigastric area as well, however, it is not as severe. She denies any fever, chills, sweats, or night sweats. She denies any chest pain at the present time. She denies nausea which was improved with her medications. PHYSICAL EXAMINATION: VITAL SIGNS: Her current blood pressure is 118/78, pulse is 78 and regular, respirations 16 and nonlabored, and temperature is afebrile. HEENT: Her head is normocephalic and atraumatic. Mouth, the mucosa is dry. No lesions are noticed. NECK: Supple. No JVD. No HJR. The thyroid is not palpable. HEART: Showed a regular rhythm with no rubs, murmurs, or gallops. LUNGS: Showed fair air entry bilaterally. No rales, wheezing, or rhonchi. ABDOMEN: Soft with pain on palpation in the lower epigastric area, but more prominently in the right upper quadrant under the ribs. She has no organomegaly. There was voluntary guarding secondary to the pain. No rebound tenderness was elicited. No masses were palpable. No CVA tenderness elicited. BACK: Back showed no pain on palpation. EXTREMITIES: No clubbing, cyanosis, or edema. No Arely sign could be elicited. She does have pain in the knees on palpation. NEUROLOGIC: Showed the DTRs to be equal bilaterally. No lateralizing signs appreciated. LABORATORY DATA: Her most recent blood test showed the WBC at 11.8, H and H were 14.1 and 43.2 with a platelet count of 192. The electrolytes were all within normal limits. Sodium 137, potassium 3.8, chloride 105, CO2 of 26, BUN was 10, creatinine 0.9, glucose was 113, GFR was greater than 60, bilirubin was 1.4 which is elevated from prior readings of 0.8 and 1.2. Liver function tests were within normal limits. Troponin levels were all flat. Lipase was negative on admission. ASSESSMENT: Right upper quadrant pain secondary to acute cholecystitis and cholelithiasis, chest wall pain resolved, nicotine addiction, and osteoarthritis of the knees. PLAN: The patient will be performing a stress test today in order to evaluate her suitability for surgery. Upon evaluation by Cardiology and cleared by Cardiology for surgery, the patient is being scheduled today for surgical intervention for cholecystectomy in the morning. We will monitor her vital signs as well as her blood work prior to surgery. As per the surgeon, her anticoagulant prophylactically for DVT was held in anticipation of surgery. The patient is also stating that she will have a difficult time doing a regular stress test, and she will discuss with the traffic control officer a chemical stress test. Jeffrey Camacho MD
--- NOTE | 2018-08-08 09:34 | CP.PCM.PN ---
Subjective - Date & Time of Evaluation Date of Evaluation: 08/08/18 Time of Evaluation: 08:30 - Subjective Subjective: NO CHEST PAIN TODAY Objective - Vital Signs/Intake and Output Vital Signs (last 24 hours): Temp Pulse Resp BP Pulse Ox 98.8 F 77 18 109/73 94 L 08/08/18 08:08 08/08/18 08:08 08/08/18 08:08 08/08/18 08:08 08/08/18 08:08 - Medications Medications: Current Medications Acetaminophen (Tylenol 325mg Tab) 650 mg PO Q6 PRN PRN Reason: Pain, Mild (1-3) Last Admin: 08/08/18 08:09 Dose: 650 mg Alprazolam (Xanax) 0.5 mg PO Q8 [facility] Last Admin: 08/08/18 08:09 Dose: 0.5 mg Aspirin (Ecotrin) 81 mg PO DAILY [facility] Hydromorphone HCl (Dilaudid) 0.5 mg IVP Q4 PRN PRN Reason: Pain, severe (8-10) Dextrose/Sodium Chloride (Dextrose 5%/0.45% Ns 1000 Ml) 1,000 mls @ 125 mls/hr IV .Q8H [facility] Stop: 08/08/18 14:14 Last Admin: 08/08/18 08:15 Dose: Not Given Ampicillin Sodium/Sulbactam (Sodium 1.5 gm/ Sodium Chloride) 100 mls @ 100 mls/hr IVPB Q6 [facility]; Protocol Last Admin: 08/08/18 04:40 Dose: 100 mls/hr Nicotine (Nicoderm Cq) 1 patch TD DAILY [facility] Last Admin: 08/08/18 08:10 Dose: 1 patch Ondansetron HCl (Zofran Inj) 4 mg IVP Q4 PRN PRN Reason: Nausea/Vomiting Pantoprazole Sodium (Protonix Ec Tab) 40 mg PO DAILY [facility] Last Admin: 08/08/18 08:09 Dose: 40 mg - Labs Labs: 08/08/18 04:22 08/08/18 04:22 PT 16.2 Seconds (9.8-13.1) H 08/08/18 04:22 INR 1.4 08/08/18 04:22 APTT 30.4 Seconds (25.6-37.1) 08/08/18 04:22 - Respiratory Exam Respiratory Exam: Clear to Ausculation Bilateral - Cardiovascular Exam Cardiovascular Exam: REGULAR RHYTHM, +S1, +S2 - Extremities Exam Extremities Exam: Normal Inspection - Additional Findings Additional findings: SURGICAL NOTE SEEN AND THEY WANT TO DO A CHOLECYSTECTOMY Assessment and Plan - Assessment and Plan (Free Text) Assessment: CHEST PAIN HISTORY CHOLELITHIASIS Plan: FOR STRESS TEST TODAY-PATIENT NOW AGREEABLE FOR CHOLECYSTECTOMY TOMORROW IF STRESS TEST IS OK
--- NOTE | 2018-08-08 10:05 | CP.PCM.PN ---
Subjective - Date & Time of Evaluation Date of Evaluation: 08/08/18 Time of Evaluation: 10:00 - Subjective Subjective: Patient was seen and examined at the bedside. Still reports RUQ abdominal pain. For stress test today. Objective - Vital Signs/Intake and Output Vital Signs (last 24 hours): Temp Pulse Resp BP Pulse Ox 98.8 F 77 18 109/73 94 L 08/08/18 08:08 08/08/18 08:08 08/08/18 08:08 08/08/18 08:08 08/08/18 08:08 - Medications Medications: Current Medications Acetaminophen (Tylenol 325mg Tab) 650 mg PO Q6 PRN PRN Reason: Pain, Mild (1-3) Last Admin: 08/08/18 08:09 Dose: 650 mg Alprazolam (Xanax) 0.5 mg PO Q8 [facility] Last Admin: 08/08/18 08:09 Dose: 0.5 mg Aspirin (Ecotrin) 81 mg PO DAILY [facility] Hydromorphone HCl (Dilaudid) 0.5 mg IVP Q4 PRN PRN Reason: Pain, severe (8-10) Dextrose/Sodium Chloride (Dextrose 5%/0.45% Ns 1000 Ml) 1,000 mls @ 125 mls/hr IV .Q8H [facility] Stop: 08/08/18 14:14 Last Admin: 08/08/18 08:15 Dose: Not Given Ampicillin Sodium/Sulbactam (Sodium 1.5 gm/ Sodium Chloride) 100 mls @ 100 mls/hr IVPB Q6 [facility]; Protocol Last Admin: 08/08/18 04:40 Dose: 100 mls/hr Nicotine (Nicoderm Cq) 1 patch TD DAILY [facility] Last Admin: 08/08/18 08:10 Dose: 1 patch Ondansetron HCl (Zofran Inj) 4 mg IVP Q4 PRN PRN Reason: Nausea/Vomiting Pantoprazole Sodium (Protonix Ec Tab) 40 mg PO DAILY [facility] Last Admin: 08/08/18 08:09 Dose: 40 mg - Labs Labs: 08/08/18 04:22 08/08/18 04:22 PT 16.2 Seconds (9.8-13.1) H 08/08/18 04:22 INR 1.4 08/08/18 04:22 APTT 30.4 Seconds (25.6-37.1) 08/08/18 04:22 - Constitutional Appears: Well, Non-toxic, No Acute Distress - Head Exam Head Exam: ATRAUMATIC, NORMAL INSPECTION, NORMOCEPHALIC - Eye Exam Eye Exam: EOMI, Normal appearance, PERRL Pupil Exam: NORMAL ACCOMODATION, PERRL - ENT Exam ENT Exam: Mucous Membranes Moist, Normal Exam - Neck Exam Neck Exam: Full ROM, Normal Inspection - Respiratory Exam Respiratory Exam: Clear to Ausculation Bilateral, NORMAL BREATHING PATTERN - Cardiovascular Exam Cardiovascular Exam: REGULAR RHYTHM, +S1, +S2 - GI/Abdominal Exam GI & Abdominal Exam: Soft, Normal Bowel Sounds Additional comments: RUQ tenderness, ND, no rebound, no guarding - Rectal Exam Rectal Exam: Deferred - Extremities Exam Extremities Exam: Full ROM, Normal Inspection - Neurological Exam Neurological Exam: Alert, Awake, Oriented x3 - Psychiatric Exam Psychiatric exam: Normal Affect, Normal Mood - Skin Skin Exam: Dry, Intact, Normal Color, Warm Assessment and Plan - Assessment and Plan (Free Text) Assessment: 63 y.o. female with acute cholecystitis Plan: - Keep NPO - IV fluids - Pain control - Continue Unasyn - Stress test today - Awaiting cardiac clearance for surgery - Will follow
--- NOTE | 2018-08-08 15:56 | CP.PCM.PN ---
Subjective - Date & Time of Evaluation Date of Evaluation: 08/08/18 Time of Evaluation: 15:50 - Subjective Subjective: Pt seen and examined this afternoon. She reports having a headache currently not relieved with tylenol and poor appetite today. Pt had a exercise stress test that was "inconclusive" as per pt and is now pending a nuclear stress test tomorrow. No abdominal pain at this time. Labs and vitals noted. T bili slightly bumped. PE Gen: Pt laying in bed in NAD Skin: warm and dry, (-) jaundice Cardio: s1s2 RRR Lungs: CTA bilaterally Abd: Soft, (-) distention. (+) torres's Extr: (-) calf tenderness bilaterally A/P Cholecystitis Pt pending cardiac clearance, has nuclear stress test scheduled tomorrow. If pt does not do well with nuclear stress test, pt will need a cholecystostomy tube by IR. If pt has a normal nuclear stress test, then pt for Lap casandra on monday08/10/18. Monitor labs Continue iv abx Pain meds prn. Order entered for ibuprofen for pt's headache. Objective - Vital Signs/Intake and Output Vital Signs (last 24 hours): Temp Pulse Resp BP Pulse Ox 98.4 F 83 18 111/65 99 08/08/18 11:51 08/08/18 11:51 08/08/18 11:51 08/08/18 11:51 08/08/18 11:51 - Medications Medications: Current Medications Acetaminophen (Tylenol 325mg Tab) 650 mg PO Q6 PRN PRN Reason: Pain, Mild (1-3) Last Admin: 08/08/18 08:09 Dose: 650 mg Alprazolam (Xanax) 0.5 mg PO Q8 [facility] Last Admin: 08/08/18 08:09 Dose: 0.5 mg Aspirin (Ecotrin) 81 mg PO DAILY [facility] Hydromorphone HCl (Dilaudid) 0.5 mg IVP Q4 PRN PRN Reason: Pain, severe (8-10) Ampicillin Sodium/Sulbactam (Sodium 1.5 gm/ Sodium Chloride) 100 mls @ 100 mls/hr IVPB Q6 [facility]ON; Protocol Last Admin: 08/08/18 12:43 Dose: 100 mls/hr Ibuprofen (Motrin Tab) 400 mg PO Q4 [facility] Stop: 08/08/18 15:48 Nicotine (Nicoderm Cq) 1 patch TD DAILY [facility] Last Admin: 08/08/18 08:10 Dose: 1 patch Ondansetron HCl (Zofran Inj) 4 mg IVP Q4 PRN PRN Reason: Nausea/Vomiting Pantoprazole Sodium (Protonix Ec Tab) 40 mg PO DAILY [facility] Last Admin: 08/08/18 08:09 Dose: 40 mg - Labs Labs: 08/08/18 04:22 08/08/18 04:22 PT 16.2 Seconds (9.8-13.1) H 08/08/18 04:22 INR 1.4 08/08/18 04:22 APTT 30.4 Seconds (25.6-37.1) 08/08/18 04:22
--- NOTE | 2018-08-08 16:58 | CARD ---
APPROVED REPORT Date of service: 08/08/2018 Protocol: ALISTAIR Test Type: Treadmill Stress Test Attending Physician: Dr. DR. FERNANDEZ Referring Physician: Dr. DR LUONG Technologist: HUI Oden Indications: CHEST PAIN Medications: XANAX 0.5MG,ASA 81MG, DILAUDID 0.5MG, ZOFRAN 4MG, PROTONIX 40MG, Medical History: GERD, DIVETICULITIS, SOPD, ARTHTITIS, TRIGGER FINGER, ANXIETY, SMOKER (46 YRS) Target HR: 159 bpm Resting ECG: normal Resting Heart Rate: 100 bpm Resting Blood Pressure: 123/82mmHg submaximum (85%): 135 bpm TEST SUMMARY [id number]/82.1. [id number]/82.1. PRETESTHYPERV.00:[id number]/82.1. PRETESTWARM-UP08:[id number]/82.0. EXERCISESTAGE 003:[id number]/82.0. EXERCISESTAGE 1/201:[id number]/82.9. [id number]:[id number]/70.0. POST EXERCISE Reason for Termination: Fatigue Target HR: NoMax HR: 120 bpm76% of Maximum Predicted HR: 159 bpm Exercise duration: 2 Stage04:13 min:secExercise capacity: 2.9METs Max Blood Pressure: 140/60mmHg Blood Pressure response to exercise: normal resting BP - appropriate response Heart Rate response to exercise: appropriate Chest Pain: NononeAngina index: 0 Arrhythmia: Yesventricular premature beats-isolated ST Change: YesDepression downslopingDeviation: 0 mm INTERPRETATION Stress EKG Conclusion: Stress test: Patient exercised in a modify Alistair protocole to 1.14 min of stage 2. No chest pain reported. There was normal blood pressure response with a maximum blood pressure of 123/82 at peak exercise. The patient had st changes on II III AVF V4 to V6 at exericses which persisted for a few minutes of rest. The st changes are downsloping although in some views after activities are horizontal in configuiration reaching about 1.5mm of depression. Ventricular ectopics were seen at exercise. Final conslusion: 1- Stress test is suggestive of myocardial ischemia 2- Ventricular ectopics were seen at exercises. 3- Nuclear stress test is suggestive for further analysis. 4- The case was discussed with attending Cardiolgoist Dr Crabtree.
[2018-08-09 06:02] LABS: BASO # 0.1 K/uL (0.0-0.2); BASO % 0.6 % (0.0-2.0); EOS # 0.2 K/uL (0.0-0.7); EOS % 1.9 % (0.0-4.0); HEMOGLOBIN 13.9 g/dL (12.0-16.0); LYMPH % 8.4 % (20.0-40.0); MEAN CELL VOLUME 95.3 fl (81.0-99.0); MEAN CORPUSCULAR HEMOGLOBIN 31.5 pg (27.0-31.0); MEAN PLATELET VOLUME 8.7 fl (7.2-11.7); MONO # 0.9 K/uL (0.0-0.8); MONO % 7.5 % (0.0-10.0); NEUT # 9.7 K/uL (1.8-7.0); NEUT % 81.6 % (50.0-75.0); RBC 4.42 Mil/uL (3.80-5.20); WHITE BLOOD COUNT 11.8 K/uL (4.8-10.8)
[2018-08-09 06:07] LABS: INR 1.4; PROTHROMBIN TIME 15.9 Seconds (9.8-13.1)
[2018-08-09 06:09] LABS: PARTIAL THROMBOPLASTIN TIME 34.1 Seconds (25.6-37.1)
[2018-08-09 06:30] LABS: ALB/GLOB RATIO 1.1 (1.0-2.1); ALBUMIN 3.8 g/dL (3.5-5.0); ALT/SGPT 67 U/L (9-52); AST/SGOT 67 U/L (14-36); BLOOD UREA NITROGEN 11 mg/dl (7-17); CALCIUM 9.3 mg/dL (8.4-10.2); GFR NON-AFRICAN AMERICAN > 60
--- NOTE | 2018-08-09 06:56 | CP.PCM.PN ---
Subjective - Date & Time of Evaluation Date of Evaluation: 08/09/18 Time of Evaluation: 06:35 - Subjective Subjective: anxoius because stress test was inconclusive no chest pain seen at bedside with surgical team Objective - Vital Signs/Intake and Output Vital Signs (last 24 hours): Temp Pulse Resp BP Pulse Ox 97.8 F 72 19 106/69 95 08/09/18 05:00 08/09/18 05:00 08/09/18 05:00 08/09/18 05:00 08/09/18 05:00 - Medications Medications: Current Medications Acetaminophen (Tylenol 325mg Tab) 650 mg PO Q6 PRN PRN Reason: Pain, Mild (1-3) Last Admin: 08/08/18 08:09 Dose: 650 mg Alprazolam (Xanax) 0.5 mg PO Q8 RON Last Admin: 08/09/18 00:33 Dose: Not Given Aspirin (Ecotrin) 81 mg PO DAILY RON Hydromorphone HCl (Dilaudid) 0.5 mg IVP Q4 PRN PRN Reason: Pain, severe (8-10) Last Admin: 08/08/18 20:32 Dose: 0.5 mg Ampicillin Sodium/Sulbactam (Sodium 1.5 gm/ Sodium Chloride) 100 mls @ 100 mls/hr IVPB Q6 RON; Protocol Last Admin: 08/09/18 04:03 Dose: 100 mls/hr Nicotine (Nicoderm Cq) 1 patch TD DAILY RON Last Admin: 08/08/18 08:10 Dose: 1 patch Ondansetron HCl (Zofran Inj) 4 mg IVP Q4 PRN PRN Reason: Nausea/Vomiting Last Admin: 08/09/18 00:27 Dose: 4 mg Pantoprazole Sodium (Protonix Ec Tab) 40 mg PO DAILY RON Last Admin: 08/08/18 08:09 Dose: 40 mg - Labs Labs: 08/09/18 05:00 08/09/18 05:00 PT 15.9 Seconds (9.8-13.1) H 08/09/18 05:00 INR 1.4 08/09/18 05:00 APTT 34.1 Seconds (25.6-37.1) 08/09/18 05:00 - Constitutional Appears: No Acute Distress, Other (anxoius wants to get surgery done) - Eye Exam Eye Exam: Normal appearance Pupil Exam: NORMAL ACCOMODATION - ENT Exam ENT Exam: Mucous Membranes Moist, Normal Exam - Neck Exam Neck Exam: Full ROM - Respiratory Exam Respiratory Exam: Clear to Ausculation Bilateral, NORMAL BREATHING PATTERN. absent: Rales, Rhonchi, Wheezes - Cardiovascular Exam Cardiovascular Exam: REGULAR RHYTHM - GI/Abdominal Exam GI & Abdominal Exam: Soft, Normal Bowel Sounds - Extremities Exam Extremities Exam: Full ROM, Normal Capillary Refill, Normal Inspection - Back Exam Back Exam: NORMAL INSPECTION - Neurological Exam Neurological Exam: Alert, Awake, Oriented x3 - Psychiatric Exam Psychiatric exam: Anxious - Skin Skin Exam: Intact, Normal Color, Warm Assessment and Plan (1) Chest pain Status: Acute (2) Gastritis Status: Acute (3) Vomiting Status: Resolved (4) Cholecystitis, acute Status: Acute (5) Cholecystitis, acute with cholelithiasis Status: Acute - Assessment and Plan (Free Text) Assessment: await nuclear stress test today if normal and or cleared for surgery surgical team to do surgery in am see surgical notes anxious but not treatment at this point just upaset because she has to do another test Plan: see cardiology and surgical notes for final treatment plan pending results of nuclear scan
--- NOTE | 2018-08-09 07:20 | CP.PCM.PN ---
Subjective - Date & Time of Evaluation Date of Evaluation: 08/09/18 Time of Evaluation: 07:18 - Subjective Subjective: Surgery Pt seen and examined. Had an episode of vomiting overnight after dilaudid. Pt had stress test yesterday. It was inconclusive. Planned for nuclear stress test today. NPO. Denies fever. Pain controlled. Objective - Vital Signs/Intake and Output Vital Signs (last 24 hours): Temp Pulse Resp BP Pulse Ox 97.8 F 72 19 106/69 95 08/09/18 05:00 08/09/18 05:00 08/09/18 05:00 08/09/18 05:00 08/09/18 05:00 - Medications Medications: Current Medications Acetaminophen (Tylenol 325mg Tab) 650 mg PO Q6 PRN PRN Reason: Pain, Mild (1-3) Last Admin: 08/08/18 08:09 Dose: 650 mg Alprazolam (Xanax) 0.5 mg PO Q8 [facility] Last Admin: 08/09/18 00:33 Dose: Not Given Aspirin (Ecotrin) 81 mg PO DAILY [facility] Hydromorphone HCl (Dilaudid) 0.5 mg IVP Q4 PRN PRN Reason: Pain, severe (8-10) Last Admin: 08/08/18 20:32 Dose: 0.5 mg Ampicillin Sodium/Sulbactam (Sodium 1.5 gm/ Sodium Chloride) 100 mls @ 100 ml s/hr IVPB Q6 [facility]; Protocol Last Admin: 08/09/18 04:03 Dose: 100 mls/hr Morphine Sulfate (Morphine) 2 mg IVP Q4 PRN PRN Reason: Pain, moderate (4-7) Nicotine (Nicoderm Cq) 1 patch TD DAILY [facility] Last Admin: 08/08/18 08:10 Dose: 1 patch Ondansetron HCl (Zofran Inj) 4 mg IVP Q4 PRN PRN Reason: Nausea/Vomiting Last Admin: 08/09/18 00:27 Dose: 4 mg Pantoprazole Sodium (Protonix Ec Tab) 40 mg PO DAILY [facility] Last Admin: 08/08/18 08:09 Dose: 40 mg - Labs Labs: 08/09/18 05:00 08/09/18 05:00 PT 15.9 Seconds (9.8-13.1) H 08/09/18 05:00 INR 1.4 08/09/18 05:00 APTT 34.1 Seconds (25.6-37.1) 08/09/18 05:00 - Constitutional Appears: No Acute Distress - Head Exam Head Exam: ATRAUMATIC, NORMAL INSPECTION, NORMOCEPHALIC - Eye Exam Eye Exam: EOMI, Normal appearance, PERRL Pupil Exam: NORMAL ACCOMODATION, PERRL - ENT Exam ENT Exam: Mucous Membranes Moist, Normal Exam - Neck Exam Neck Exam: Full ROM - Respiratory Exam Respiratory Exam: NORMAL BREATHING PATTERN - Cardiovascular Exam Cardiovascular Exam: REGULAR RHYTHM - GI/Abdominal Exam GI & Abdominal Exam: Soft, Tenderness. absent: Distended Additional comments: RUQ TTP - Extremities Exam Extremities Exam: Full ROM - Back Exam Back Exam: NORMAL INSPECTION - Neurological Exam Neurological Exam: Alert, Awake, Normal Gait, Oriented x3 - Psychiatric Exam Psychiatric exam: Normal Affect, Normal Mood - Skin Skin Exam: Dry, Intact, Normal Color, Warm Assessment and Plan - Assessment and Plan (Free Text) Assessment: Cholecystitis Pt pending cardiac clearance, has nuclear stress test scheduled today If pt does not do well with nuclear stress test, pt will need a casandra cystostomy tube by IR. If pt has a normal nuclear stress test, then pt for Lap casandra on monday10/10/17. Monitor labs Continue iv abx Pain meds prn. Will ANTONIO Middleton
--- NOTE | 2018-08-09 09:13 | CP.PCM.PN ---
Subjective - Date & Time of Evaluation Date of Evaluation: 08/09/18 Time of Evaluation: 09:09 - Subjective Subjective: Pt seen and examined this AM in cardiology suite. She reports having an episode of vomiting after receiving Dilaudid. She currently denies having any abdominal pain. Afebrile. Pt about to have nuclear stress test done today. Labs and vitals noted PE: Gen: Pt in bed in NAD Skin: warm and dry,(-) jaundice Cardio: s1s2 RRR Lungs: CTA bilaterally Abd: Soft NTND, (-) torres's A/P Cholecystitis Surgical plan pending on results of nuclear stress test. If test is normal, pt for Lap casandra tomorrow Monitor labs NPO IV fluids Continue IV antibiotics Pain medications already adjusted to low doses prn Objective - Vital Signs/Intake and Output Vital Signs (last 24 hours): Temp Pulse Resp BP Pulse Ox 98.3 F 72 18 109/73 97 08/09/18 08:00 08/09/18 08:00 08/09/18 08:00 08/09/18 08:00 08/09/18 08:00 - Medications Medications: Current Medications Acetaminophen (Tylenol 325mg Tab) 650 mg PO Q6 PRN PRN Reason: Pain, Mild (1-3) Last Admin: 08/08/18 08:09 Dose: 650 mg Alprazolam (Xanax) 0.5 mg PO Q8 RON Last Admin: 08/09/18 00:33 Dose: Not Given Aspirin (Ecotrin) 81 mg PO DAILY RON Hydromorphone HCl (Dilaudid) 0.5 mg IVP Q4 PRN PRN Reason: Pain, severe (8-10) Last Admin: 08/08/18 20:32 Dose: 0.5 mg Ampicillin Sodium/Sulbactam (Sodium 1.5 gm/ Sodium Chloride) 100 mls @ 100 mls/hr IVPB Q6 [facility]; Protocol Last Admin: 08/09/18 04:03 Dose: 100 mls/hr Dextrose/Lactated Ringer's (Dextrose 5%/Lactated Ringer's) 1,000 mls @ 140 mls/hr IV .Q7H9M RON Stop: 08/10/18 08:51 Morphine Sulfate (Morphine) 2 mg IVP Q4 PRN PRN Reason: Pain, moderate (4-7) Nicotine (Nicoderm Cq) 1 patch TD DAILY RON Last Admin: 08/08/18 08:10 Dose: 1 patch Ondansetron HCl (Zofran Inj) 4 mg IVP Q4 PRN PRN Reason: Nausea/Vomiting Last Admin: 08/09/18 00:27 Dose: 4 mg Pantoprazole Sodium (Protonix Ec Tab) 40 mg PO DAILY RON Last Admin: 08/08/18 08:09 Dose: 40 mg - Labs Labs: 08/09/18 05:00 08/09/18 05:00 PT 15.9 Seconds (9.8-13.1) H 08/09/18 05:00 INR 1.4 08/09/18 05:00 APTT 34.1 Seconds (25.6-37.1) 08/09/18 05:00
--- NOTE | 2018-08-09 10:54 | CP.PCM.PN ---
Subjective - Date & Time of Evaluation Date of Evaluation: 08/09/18 Time of Evaluation: 09:45 - Subjective Subjective: NO CHEST PAIN OR SOB Objective - Vital Signs/Intake and Output Vital Signs (last 24 hours): Temp Pulse Resp BP Pulse Ox 98.3 F 72 18 109/73 97 08/09/18 08:00 08/09/18 08:00 08/09/18 08:00 08/09/18 08:00 08/09/18 08:00 - Medications Medications: Current Medications Acetaminophen (Tylenol 325mg Tab) 650 mg PO Q6 PRN PRN Reason: Pain, Mild (1-3) Last Admin: 08/08/18 08:09 Dose: 650 mg Alprazolam (Xanax) 0.5 mg PO Q8 [facility] Last Admin: 08/09/18 00:33 Dose: Not Given Aspirin (Ecotrin) 81 mg PO DAILY [facility] Hydromorphone HCl (Dilaudid) 0.5 mg IVP Q4 PRN PRN Reason: Pain, severe (8-10) Last Admin: 08/08/18 20:32 Dose: 0.5 mg Ampicillin Sodium/Sulbactam (Sodium 1.5 gm/ Sodium Chloride) 100 mls @ 100 mls/hr IVPB Q6 [facility]; Protocol Last Admin: 08/09/18 04:03 Dose: 100 mls/hr Dextrose/Lactated Ringer's (Dextrose 5%/Lactated Ringer's) 1,000 mls @ 140 mls/hr IV .Q7H9M [facility] Stop: 08/10/18 08:51 Morphine Sulfate (Morphine) 2 mg IVP Q4 PRN PRN Reason: Pain, moderate (4-7) Nicotine (Nicoderm Cq) 1 patch TD DAILY [facility] Last Admin: 08/08/18 08:10 Dose: 1 patch Ondansetron HCl (Zofran Inj) 4 mg IVP Q4 PRN PRN Reason: Nausea/Vomiting Last Admin: 08/09/18 00:27 Dose: 4 mg Pantoprazole Sodium (Protonix Ec Tab) 40 mg PO DAILY [facility] Last Admin: 08/08/18 08:09 Dose: 40 mg - Labs Labs: 08/09/18 05:00 08/09/18 05:00 PT 15.9 Seconds (9.8-13.1) H 08/09/18 05:00 INR 1.4 08/09/18 05:00 APTT 34.1 Seconds (25.6-37.1) 08/09/18 05:00 - Respiratory Exam Respiratory Exam: Clear to Ausculation Bilateral - Cardiovascular Exam Cardiovascular Exam: REGULAR RHYTHM, +S1, +S2 - Extremities Exam Additional comments: NO SIGNIFICANT LE EDEMA - Additional Findings Additional findings: REGULAR STRESS TEST YESTERDAY REVIEWED WITH DR MOFFETT AND THERE WERE ST SEGMENT DEPRESSIONS IN THE INFERIOR AND LATERAL LEADS Assessment and Plan - Assessment and Plan (Free Text) Assessment: CHEST PAIN HISTORY AND ABNORMAL SIMPLE EXERCISE STRESS TEST Plan: PATIENT IS HAVING A PHARMACOLOGICAL NUCLEAR STRESS TEST TODAY
[2018-08-09] MEDS: Dextrose 5%/Lactated Ringer's 1,000 ML IV SCH ×2 (10:57→16:58)
[2018-08-09] MEDS: Pantoprazole 40 mg EC Tab PO SCH (10:57)
--- NOTE | 2018-08-09 12:56 | CARD ---
APPROVED REPORT Date of service: 08/09/2018 Protocol: LEXISCAN Test Type: STRESS NUCLEAR Medications: TYLENOL 325MG ,XANAX 0.5MG ASA 81MG DILAUDID 0.5MG NICOTENE PATCH, ZOFRAN 4MG PROTONIX 4UNIT Medical History: COPD, SMOKER, ARTHRITIS, GERD, DIVERTICULITIS, ANXIETY, LT FOOT SURGERY, CHOLECYSTITIS-ACUTE, WITH/CHOLELITHIASIS Target HR: 159 bpm Resting ECG: normal Resting Heart Rate: 84 bpm Resting Blood Pressure: 144/77mmHg submaximum (85%): 135 bpm TEST SUMMARY PREINJECTPRE-INJEC01:[id number]. [id number]. INJECTIONNS FLUSH00:[id number]/85.8. INJECTIONNUC MED00:[id number]/85.6. [id number]/82.9. PROCEDURE Pharmacologic stress testing was performed using 0.4mg per 5ml of regadenoson given intravenously over 7-10 seconds. POST EXERCISE Reason for Termination: Fatigue Target HR: No Max HR: 82 bpm 65% of Maximum Predicted HR: 159 bpm Exercise duration: 01:00 min:sec, 0 Stage Exercise capacity: 1.0METs Max Blood Pressure: 144/70mmHg Blood Pressure response to exercise: normal resting BP - appropriate response Heart Rate response to exercise: appropriate Chest Pain: No, none Angina index: 0 Arrhythmia: Yes, ventricular premature beats-isolated ST Change: Yes, Depression downsloping Deviation: 0 mm Clinical Indications Under Appropriate Use Criteria Patient with a history of smoking since age 17 came in to the hospital with chest pressure without signficant electrocardiogam changes. Initial EKG shows st changes on II III AVF and lateral ekg leads V4 to V6. Today electrocardiogram after Lexiscan shows minor non specific st changes on same leads as before but less prominent. Non these st changes are non specific in pattern. Stress EKG Interpretation 1- Stress test today shows non specific changes on II III and AVF V4 to V6 2- Rare Ventricular ectopcis at activities. EXAM: Myocardial Perfusion REST/STRESS Image QualityGood Imaging Protocol The imaging protocol used to acquire images was Rest Tc-99m/stress Tc-99m 1 day Rest Spect myocardial perfusion imaging was performed in supine position 90 minutes following the injection of 10 mCi of Tc-99 Myoview. Time of rest injection: 7:27 Time of rest imagin:06 At peak stress, the patient was injected intravenously with 30mCi of Tc-99 tetrofosmin after an infusion time of minutes and seconds. Time of stress injection: 10:16 Time of stress imagin:39 Gated Stress Spect was performed 83 minutes after intravenous Tc-99 Myoview injection. The images were gated to evaluate regional wall motion and calculate ventricular ejection fraction. NUCLEAR IMAGE INTERPRETATION Study quality was excellent. Left Ventricular size was Normal at Rest and Stress. Lung uptake was Normal. Left Ventricular ejection fraction is 73%. The rest and stress images show normal perfusion, normal contraction and thickening. LV Perfusion Normal perfusion scan LV Perfusion 1 The rest and stress images show normal perfusion. Wall Motion Normal wall motion with normal LVEF 73% CONCLUSION 1. 1- Normal nuclear stress test. 2. 2- Abnormal st changes on II III, V4 to V6 with ventricular ectopics at regular stress test without chest pain. 3. 3- Normal nuclear wall motion on the left ventricle without any segmental defects. 4. 4- Normal left ventricular ejection fraction 73% Recommendation Medical therpay recommended.
[2018-08-10] MEDS: Dextrose 5%/Lactated Ringer's 1,000 ML IV SCH ×2 (00:24→09:09)
[2018-08-10 07:37] LABS: BASO # 0.1 K/uL (0.0-0.2); BASO % 1.1 % (0.0-2.0); EOS # 0.4 K/uL (0.0-0.7); EOS % 3.6 % (0.0-4.0); HEMOGLOBIN 12.9 g/dL (12.0-16.0); LYMPH # 1.9 K/uL (1.0-4.3); LYMPH % 15.7 % (20.0-40.0); MEAN CELL VOLUME 95.7 fl (81.0-99.0); MEAN CORPUSCULAR HEMOGLOBIN 30.8 pg (27.0-31.0); MEAN CORPUSCULAR HGB CONC 32.2 g/dL (33.0-37.0); MEAN PLATELET VOLUME 9.2 fl (7.2-11.7); MONO # 1.1 K/uL (0.0-0.8); MONO % 9.3 % (0.0-10.0); NEUT # 8.6 K/uL (1.8-7.0); NEUT % 70.3 % (50.0-75.0); NRBC % 0.1 % (0.0-0.0); RBC 4.17 Mil/uL (3.80-5.20); WHITE BLOOD COUNT 12.3 K/uL (4.8-10.8)
[2018-08-10 08:03] LABS: ALBUMIN 3.4 g/dL (3.5-5.0); ALT/SGPT 45 U/L (9-52); AST/SGOT 37 U/L (14-36); BLOOD UREA NITROGEN 9 mg/dl (7-17); CALCIUM 8.8 mg/dL (8.4-10.2); GFR NON-AFRICAN AMERICAN > 60
--- NOTE | 2018-08-10 08:50 | PN ---
DATE: 08/10/2018 LOCATION: She was admitted to room 401, bed 2. CHIEF COMPLAINT: The patient states that she continues to have discomfort in the right upper quadrant as well as in the epigastric area. She states the pain is somewhat better; however, she still feels that. She denied any fever or chills. Denied any shortness of breath. Denied chest pain or palpitations. Denied any back pain. She has no nausea or vomiting; however, she has not been eating well. PHYSICAL EXAMINATION: HEENT: Head, normocephalic and atraumatic. Eyes: Sclerae clear. Conjunctivae pink. Mouth: The mucosa is dry; however, she has been mouth breathing. No lesions noted. NECK: Supple. No JVD. No HJR. The thyroid is not palpable. Pulses are equal bilaterally. No bruits are heard. HEART: Shows irregular rhythm with no rubs, murmurs, or gallops. LUNGS: Showed good air entry bilaterally. No rales, wheezing, or rhonchi. ABDOMEN: Soft with some mild voluntary guarding on palpation over the right upper quadrant. There is no organomegaly palpable. No masses are palpable. No CVA tenderness noted. EXTREMITIES: Showed no clubbing, cyanosis, or edema. No Homans sign could be elicited. NEUROLOGIC: Showed the DTRs to be equal bilaterally. No lateralizing signs. LABORATORY DATA: The most recent WBC is stable at 11.8, H and H is 13.9 and 42.2 with a platelet count of 232. Her most electrolyte showed sodium of 142, potassium 4.6, chloride of 105, CO2 of 31, BUN is 11, creatinine 0.9, GFR was greater than 60. Her phosphorus level was elevated at 5, magnesium is normal at 2.2, total bilirubin is 1.5. Her liver function test has increased. Her AST increased from 25 to 67, ALT increased from 29 to 67 and alkaline phosphatase increased from 114 to 185. The most recent PT was 15.9 with an INR of 1.4, PTT is 34.1. ASSESSMENT: Acute cholecystitis with cholelithiasis; chest wall pain, acute coronary syndrome ruled out; mild coagulopathy. PLAN: The patient had a chemical stress test performed yesterday. She needs to be cleared by Cardiology. If cleared today, she is to have a lap casandra. Her blood test will be monitored to evaluate her liver function tests postoperatively and she will be discharged when cleared by Surgery and Cardiology. Jeffrey Camacho MD
[2018-08-10] MEDS: Pantoprazole 40 mg EC Tab PO SCH (09:10)
--- NOTE | 2018-08-10 10:14 | CP.PCM.PN ---
Subjective - Date & Time of Evaluation Date of Evaluation: 08/10/18 Time of Evaluation: 10:00 - Subjective Subjective: NO CHEST PAIN OR SOB Objective - Vital Signs/Intake and Output Vital Signs (last 24 hours): Temp Pulse Resp BP Pulse Ox 97.4 F L 69 18 120/82 98 08/10/18 07:55 08/10/18 07:55 08/10/18 07:55 08/10/18 07:55 08/10/18 07:55 - Medications Medications: Current Medications Acetaminophen (Tylenol 325mg Tab) 650 mg PO Q6 PRN PRN Reason: Pain, Mild (1-3) Last Admin: 08/09/18 17:02 Dose: 650 mg Alprazolam (Xanax) 0.5 mg PO Q8 [facility] Last Admin: 08/10/18 09:09 Dose: Not Given Aspirin (Ecotrin) 81 mg PO DAILY [facility] Hydromorphone HCl (Dilaudid) 0.5 mg IVP Q4 PRN PRN Reason: Pain, severe (8-10) Last Admin: 08/08/18 20:32 Dose: 0.5 mg Ampicillin Sodium/Sulbactam (Sodium 1.5 gm/ Sodium Chloride) 100 mls @ 100 mls/hr IVPB Q6 [facility]; Protocol Last Admin: 08/10/18 09:10 Dose: 100 mls/hr Morphine Sulfate (Morphine) 2 mg IVP Q4 PRN PRN Reason: Pain, moderate (4-7) Nicotine (Nicoderm Cq) 1 patch TD DAILY [facility] Last Admin: 08/10/18 09:10 Dose: 1 patch Ondansetron HCl (Zofran Inj) 4 mg IVP Q4 PRN PRN Reason: Nausea/Vomiting Last Admin: 08/09/18 00:27 Dose: 4 mg Pantoprazole Sodium (Protonix Ec Tab) 40 mg PO DAILY [facility] Last Admin: 08/10/18 09:10 Dose: Not Given - Labs Labs: 08/10/18 07:33 08/10/18 07:33 PT 15.9 Seconds (9.8-13.1) H 08/09/18 05:00 INR 1.4 08/09/18 05:00 APTT 34.1 Seconds (25.6-37.1) 08/09/18 05:00 - Respiratory Exam Respiratory Exam: Clear to Ausculation Bilateral - Cardiovascular Exam Cardiovascular Exam: REGULAR RHYTHM, +S1, +S2 - Extremities Exam Additional comments: NO LE EDEMA - Additional Findings Additional findings: PHARMACOLOGICAL STRESS TEST WITH NORMAL PERFUSION OF THE LEFT VENTRICLE Assessment and Plan - Assessment and Plan (Free Text) Assessment: CHOLELITHIASIS WITH ACUTE CHOLECYSTITIS Plan: PATIENT IS CLEARED FOR CHOLECYSTECTOMY FROM CARDIAC VIEWPOINT SURGICAL TEAM SPOKEN TO CONTINUE IV ANTIBIOTICS
[2018-08-10] MEDS ORDERED: Bupivacaine 0.5% Inj(30mL) ONE (11:25)
[2018-08-10] MEDS ORDERED: Rocuronium 10 mg/ml (5 ml) ONE (11:40)
[2018-08-10] MEDS ORDERED: Propofol 10 mg/ml Inj (20 ML) ONE (11:40)
[2018-08-10] MEDS ORDERED: Midazolam 2 MG/2 ML VIAL ONE (12:28)
[2018-08-10] MEDS ORDERED: ePHEDrine 50 mg/ml Inj ONE (12:56)
[2018-08-10] MEDS ORDERED: Sodium Chloride 0.9% 10 ML IV ONE (12:57)
[2018-08-10] MEDS ORDERED: Neostigmine 1:1000 (1 mg/ml) Inj ONE (13:39)
[2018-08-10] MEDS ORDERED: Bupivacaine HCl 0.5% PF (30 ml) Inj IJ ONE (13:43)
[2018-08-10] MEDS ORDERED: Lactated Ringer's 1,000 ML IV ONE ×3 (13:44→15:32)
--- NOTE | 2018-08-10 14:19 | PCM.SURG1 ---
Surgeon's Initial Post Op Note - Surgeon's Notes Surgeon: Kane Hooker Laster: Luis Fernando Armijo PGY4 Type of Anesthesia: General Endo, Local Pre-Operative Diagnosis: Acute cholecystitis Operative Findings: Gangrenous necrotic gallbladder Post-Operative Diagnosis: same Operation Performed: laparoscopic cholecystectomy Specimen/Specimens Removed: gallbladder Estimated Blood Loss: EBL {In ML}: 300 Blood Products Given: N/A Drains Used: Jaswant Post-Op Condition: Good Date of Surgery/Procedure: 08/10/18 Time of Surgery/Procedure: 14:19
[2018-08-10] MEDS ORDERED: Oxycodone/Acetaminophen 5/325 mg Tab PO PRN (14:25)
[2018-08-10] MEDS: Lactated Ringer's 1,000 ML IV SCH (18:17)
[2018-08-10] MEDS: HYDROmorphone 0.5 mg/0.5 ml ISec IVP PRN (19:08)
[2018-08-10] MEDS ORDERED: Acetylcysteine 20% Inhal Soln (4ml) INH PRN (20:45)
[2018-08-10] MEDS ORDERED: Albuterol-Ipratrop 3 mg / 0.5 (3 ml) UD INH PRN (21:03)
[2018-08-11] MEDS: HYDROmorphone 0.5 mg/0.5 ml ISec IVP PRN (03:20)
[2018-08-11] MEDS: Lactated Ringer's 1,000 ML IV SCH ×3 (03:21→23:00)
[2018-08-11 07:46] LABS: HEMOGLOBIN 11.8 g/dL (12.0-16.0); MEAN CELL VOLUME 94.8 fl (81.0-99.0); MEAN CORPUSCULAR HEMOGLOBIN 31.3 pg (27.0-31.0); RBC 3.76 Mil/uL (3.80-5.20); WHITE BLOOD COUNT 9.2 K/uL (4.8-10.8)
[2018-08-11 08:04] LABS: ALT/SGPT 39 U/L (9-52); AST/SGOT 25 U/L (14-36); BLOOD UREA NITROGEN 7 mg/dl (7-17); CALCIUM 8.7 mg/dL (8.4-10.2); GFR NON-AFRICAN AMERICAN > 60
--- NOTE | 2018-08-11 08:06 | CP.PCM.PN ---
<OscarrashardsalOmkar - Last Filed: 08/11/18 08:03> Subjective - Date & Time of Evaluation Date of Evaluation: 08/11/18 Time of Evaluation: 08:03 - Subjective Subjective: Surgery: Dr. Armijo Pt seen and examined. Overnight pt had complaints of congestion and inability to cough up thick secretions, which improved following duonebs. She tolerated CLD, but still does not have much of an appetite. Objective - Vital Signs/Intake and Output Vital Signs (last 24 hours): Temp Pulse Resp BP Pulse Ox 98.7 F 74 18 116/74 97 08/11/18 04:58 08/11/18 04:58 08/11/18 04:58 08/11/18 04:58 08/11/18 04:58 Intake and Output: 08/11/18 08/11/18 06:59 18:59 Intake Total 1700 Output Total 440 Balance 1260 - Medications Medications: Current Medications Acetaminophen (Tylenol 325mg Tab) 650 mg PO Q6 PRN PRN Reason: Pain, Mild (1-3) Last Admin: 08/09/18 17:02 Dose: 650 mg Acetylcysteine (Acetylcysteine 20%) 2 ml INH RBID PRN PRN Reason: Cough and congestion Last Admin: 08/10/18 21:18 Dose: 2 ml Albuterol/Ipratropium (Duoneb 3 Mg/0.5 Mg (3 Ml) Ud) 3 ml INH RQ6 PRN PRN Reason: Shortness of Breath Last Admin: 08/10/18 21:18 Dose: 3 ml Alprazolam (Xanax) 0.5 mg PO Q8 RON Last Admin: 08/11/18 00:24 Dose: 0.5 mg Aspirin (Ecotrin) 81 mg PO DAILY RON Docusate Sodium (Colace) 100 mg PO BID RON Last Admin: 08/10/18 18:12 Dose: Not Given Hydromorphone HCl (Dilaudid) 0.5 mg IVP Q4H PRN PRN Reason: Pain, severe (8-10) Last Admin: 08/11/18 03:20 Dose: 0.5 mg Ampicillin Sodium/Sulbactam (Sodium 1.5 gm/ Sodium Chloride) 100 mls @ 100 mls/hr IVPB Q6 RON; Protocol Last Admin: 08/11/18 03:24 Dose: 100 mls/hr Lactated Ringer's (Lactated Ringer's) 1,000 mls @ 125 mls/hr IV .Q8H [facility] Last Admin: 08/11/18 03:21 Dose: 125 mls/hr Nicotine (Nicoderm Cq) 1 patch TD DAILY [facility] Last Admin: 08/10/18 09:10 Dose: 1 patch Ondansetron HCl (Zofran Inj) 4 mg IVP Q4 PRN PRN Reason: Nausea/Vomiting Last Admin: 08/09/18 00:27 Dose: 4 mg Oxycodone/Acetaminophen (Percocet 5/325 Mg Tab) 1 tab PO Q4 PRN PRN Reason: Pain, moderate (4-7) Stop: 08/13/18 14:26 Pantoprazole Sodium (Protonix Ec Tab) 40 mg PO DAILY [facility] Last Admin: 08/10/18 09:10 Dose: Not Given - Labs Labs: 08/11/18 06:00 08/10/18 07:33 PT 15.9 Seconds (9.8-13.1) H 08/09/18 05:00 INR 1.4 08/09/18 05:00 APTT 34.1 Seconds (25.6-37.1) 08/09/18 05:00 - Constitutional Appears: Non-toxic, No Acute Distress - Head Exam Head Exam: ATRAUMATIC, NORMOCEPHALIC - Eye Exam Eye Exam: EOMI - ENT Exam ENT Exam: Mucous Membranes Moist - Respiratory Exam Respiratory Exam: NORMAL BREATHING PATTERN. absent: Accessory Muscle Use, Respiratory Distress - GI/Abdominal Exam GI & Abdominal Exam: Soft, Tenderness (bonny-incisional ). absent: Distended, Firm, Guarding, Rigid, Rebound Additional comments: R side jaswant in place, 40cc/12hr bilious - Extremities Exam Extremities Exam: absent: Calf Tenderness, Pedal Edema - Neurological Exam Neurological Exam: Alert, Awake, Oriented x3 Assessment and Plan - Assessment and Plan (Free Text) Assessment: 63F w. cholecystitis, s/p lap casandra POD#1 -Jaswant 40cc/12hr bilious, possible removal -c/w CLD, possibly advance this afternoon -c/w pain meds -encourage OOB / IS use -will d/w attending Zemaitis PGY4 <Tommy Armijo - Last Filed: 08/11/18 11:46> Subjective - Date & Time of Evaluation Time of Evaluation: 11:30 - Subjective Subjective: Patient was seen and examined at the bedside. Agree with resident's note above. Objective - Vital Signs/Intake and Output Vital Signs (last 24 hours): Temp Pulse Resp BP Pulse Ox 98.8 F 84 18 112/66 94 L 08/11/18 08:06 08/11/18 08:06 08/11/18 08:06 08/11/18 08:06 08/11/18 08:06 Intake and Output: 08/11/18 08/11/18 06:59 18:59 Intake Total 1700 Output Total 440 Balance 1260 - Medications Medications: Current Medications Acetaminophen (Tylenol 325mg Tab) 650 mg PO Q6 PRN PRN Reason: Pain, Mild (1-3) Last Admin: 08/09/18 17:02 Dose: 650 mg Acetylcysteine (Acetylcysteine 20%) 2 ml INH RBID PRN PRN Reason: Cough and congestion Last Admin: 08/10/18 21:18 Dose: 2 ml Albuterol/Ipratropium (Duoneb 3 Mg/0.5 Mg (3 Ml) Ud) 3 ml INH RQ6 PRN PRN Reason: Shortness of Breath Last Admin: 08/10/18 21:18 Dose: 3 ml Aspirin (Ecotrin) 81 mg PO DAILY RON Docusate Sodium (Colace) 100 mg PO BID [facility] Last Admin: 08/11/18 09:40 Dose: 100 mg Hydromorphone HCl (Dilaudid) 0.5 mg IVP Q4H PRN PRN Reason: Pain, severe (8-10) Last Admin: 08/11/18 03:20 Dose: 0.5 mg Ampicillin Sodium/Sulbactam (Sodium 1.5 gm/ Sodium Chloride) 100 mls @ 100 mls/hr IVPB Q6 [facility]; Protocol Last Admin: 08/11/18 09:41 Dose: 100 mls/hr Lactated Ringer's (Lactated Ringer's) 1,000 mls @ 125 mls/hr IV .Q8H [facility] Last Admin: 08/11/18 03:21 Dose: 125 mls/hr Nicotine (Nicoderm Cq) 1 patch TD DAILY [facility] Last Admin: 08/11/18 09:40 Dose: 1 patch Ondansetron HCl (Zofran Inj) 4 mg IVP Q4 PRN PRN Reason: Nausea/Vomiting Last Admin: 08/09/18 00:27 Dose: 4 mg Oxycodone/Acetaminophen (Percocet 5/325 Mg Tab) 1 tab PO Q4 PRN PRN Reason: Pain, moderate (4-7) Stop: 08/13/18 14:26 Pantoprazole Sodium (Protonix Ec Tab) 40 mg PO DAILY RON Last Admin: 08/11/18 09:40 Dose: 40 mg - Labs Labs: 08/11/18 06:00 08/11/18 06:00 PT 15.9 Seconds (9.8-13.1) H 08/09/18 05:00 INR 1.4 08/09/18 05:00 APTT 34.1 Seconds (25.6-37.1) 08/09/18 05:00 - GI/Abdominal Exam Additional comments: soft, bonny-incisional tenderness, ND, BS+, no rebound, no guarding, incisions clean, no erythema, no drainage, Jaswant drain in place Assessment and Plan - Assessment and Plan (Free Text) Plan: - start regular diet - pain control - Continue Unasyn - Insentive spirometry - DVT ppx - out of bed and ambulate - repeat labs in am - Will follow
[2018-08-11] MEDS: Pantoprazole 40 mg EC Tab PO SCH (09:40)
--- NOTE | 2018-08-11 13:24 | CP.PCM.PN ---
Subjective - Date & Time of Evaluation Date of Evaluation: 08/11/18 Time of Evaluation: 13:15 - Subjective Subjective: NO CHEST PAIN OR SOB ABDOMINAL TENDERNESS Objective - Vital Signs/Intake and Output Vital Signs (last 24 hours): Temp Pulse Resp BP Pulse Ox 98.9 F 76 18 113/69 98 08/11/18 12:21 08/11/18 12:21 08/11/18 12:21 08/11/18 12:21 08/11/18 12:21 Intake and Output: 08/11/18 08/11/18 06:59 18:59 Intake Total 1700 Output Total 440 Balance 1260 - Medications Medications: Current Medications Acetaminophen (Tylenol 325mg Tab) 650 mg PO Q6 PRN PRN Reason: Pain, Mild (1-3) Last Admin: 08/09/18 17:02 Dose: 650 mg Acetylcysteine (Acetylcysteine 20%) 2 ml INH RBID PRN PRN Reason: Cough and congestion Last Admin: 08/10/18 21:18 Dose: 2 ml Albuterol/Ipratropium (Duoneb 3 Mg/0.5 Mg (3 Ml) Ud) 3 ml INH RQ6 PRN PRN Reason: Shortness of Breath Last Admin: 08/10/18 21:18 Dose: 3 ml Aspirin (Ecotrin) 81 mg PO DAILY [facility] Docusate Sodium (Colace) 100 mg PO BID [facility] Last Admin: 08/11/18 09:40 Dose: 100 mg Hydromorphone HCl (Dilaudid) 0.5 mg IVP Q4H PRN PRN Reason: Pain, severe (8-10) Last Admin: 08/11/18 03:20 Dose: 0.5 mg Ampicillin Sodium/Sulbactam (Sodium 1.5 gm/ Sodium Chloride) 100 mls @ 100 mls/hr IVPB Q6 RON; Protocol Last Admin: 08/11/18 09:41 Dose: 100 mls/hr Lactated Ringer's (Lactated Ringer's) 1,000 mls @ 125 mls/hr IV .Q8H [facility] Last Admin: 08/11/18 03:21 Dose: 125 mls/hr Nicotine (Nicoderm Cq) 1 patch TD DAILY [facility]ON Last Admin: 08/11/18 09:40 Dose: 1 patch Ondansetron HCl (Zofran Inj) 4 mg IVP Q4 PRN PRN Reason: Nausea/Vomiting Last Admin: 08/09/18 00:27 Dose: 4 mg Oxycodone/Acetaminophen (Percocet 5/325 Mg Tab) 1 tab PO Q4 PRN PRN Reason: Pain, moderate (4-7) Stop: 08/13/18 14:26 Last Admin: 08/11/18 12:10 Dose: 1 tab Pantoprazole Sodium (Protonix Ec Tab) 40 mg PO DAILY RON Last Admin: 08/11/18 09:40 Dose: 40 mg - Labs Labs: 08/11/18 06:00 08/11/18 06:00 PT 15.9 Seconds (9.8-13.1) H 08/09/18 05:00 INR 1.4 08/09/18 05:00 APTT 34.1 Seconds (25.6-37.1) 08/09/18 05:00 - Respiratory Exam Respiratory Exam: Clear to Ausculation Bilateral - Cardiovascular Exam Cardiovascular Exam: REGULAR RHYTHM, +S1, +S2 - GI/Abdominal Exam Additional comments: TENDERNESS AT SURGICAL SITE AND ABDOMEN BS PRESENT - Extremities Exam Additional comments: NO LE EDEMA - Additional Findings Additional findings: OR NOTE SEEN WITH LAP PEDRO AND GALLBLADDER WAS NECROTIC AND GANGRENOUS Assessment and Plan - Assessment and Plan (Free Text) Assessment: S/P LAPAROSCOPIC CHOLECYSTECTOMY FOR CHOLELITHIASIS WITH CHOLECYSTITIS Plan: CONTINUE IV ANTIBIOTICS FOR PROBABLE DISCHARGE IN AM
[2018-08-12 00:50] VITALS: RESP 18
[2018-08-12 07:29] LABS: ALBUMIN 2.9 g/dL (3.5-5.0); ALT/SGPT 35 U/L (9-52); AST/SGOT 19 U/L (14-36); BLOOD UREA NITROGEN 7 mg/dl (7-17); GFR NON-AFRICAN AMERICAN > 60
--- NOTE | 2018-08-12 07:56 | CP.PCM.PN ---
<Omkar Gould - Last Filed: 08/12/18 07:57> Subjective - Date & Time of Evaluation Date of Evaluation: 08/12/18 Time of Evaluation: 07:55 - Subjective Subjective: Surgery: Dr. Armijo Pt seen and examined. She states that she is feeling much better. Tolerating regular diet. No N/V. Ambulating w. out difficulty. Still has complaints of congestion. Objective - Vital Signs/Intake and Output Vital Signs (last 24 hours): Temp Pulse Resp BP Pulse Ox 97.9 F 82 18 123/79 94 L 08/12/18 05:00 08/12/18 05:00 08/12/18 05:00 08/12/18 05:00 08/12/18 05:00 - Medications Medications: Current Medications Acetaminophen (Tylenol 325mg Tab) 650 mg PO Q6 PRN PRN Reason: Pain, Mild (1-3) Last Admin: 08/09/18 17:02 Dose: 650 mg Acetylcysteine (Acetylcysteine 20%) 2 ml INH RBID PRN PRN Reason: Cough and congestion Last Admin: 08/10/18 21:18 Dose: 2 ml Albuterol/Ipratropium (Duoneb 3 Mg/0.5 Mg (3 Ml) Ud) 3 ml INH RQ6 PRN PRN Reason: Shortness of Breath Last Admin: 08/10/18 21:18 Dose: 3 ml Alprazolam (Xanax) 0.5 mg PO Q8 PRN PRN Reason: Anxiety Stop: 08/12/18 23:55 Last Admin: 08/12/18 01:04 Dose: 0.5 mg Docusate Sodium (Colace) 100 mg PO BID RON Last Admin: 08/11/18 17:36 Dose: 100 mg Hydromorphone HCl (Dilaudid) 0.5 mg IVP Q4H PRN PRN Reason: Pain, severe (8-10) Last Admin: 08/11/18 03:20 Dose: 0.5 mg Ampicillin Sodium/Sulbactam (Sodium 1.5 gm/ Sodium Chloride) 100 mls @ 100 mls/hr IVPB Q6 RON; Protocol Last Admin: 08/12/18 04:48 Dose: 100 mls/hr Nicotine (Nicoderm Cq) 1 patch TD DAILY RON Last Admin: 08/11/18 09:40 Dose: 1 patch Ondansetron HCl (Zofran Inj) 4 mg IVP Q4 PRN PRN Reason: Nausea/Vomiting Last Admin: 08/09/18 00:27 Dose: 4 mg Oxycodone/Acetaminophen (Percocet 5/325 Mg Tab) 1 tab PO Q4 PRN PRN Reason: Pain, moderate (4-7) Stop: 08/13/18 14:26 Last Admin: 08/11/18 12:10 Dose: 1 tab Pantoprazole Sodium (Protonix Ec Tab) 40 mg PO DAILY RON Last Admin: 08/11/18 09:40 Dose: 40 mg - Labs Labs: 08/11/18 06:00 08/12/18 05:25 PT 15.9 Seconds (9.8-13.1) H 08/09/18 05:00 INR 1.4 08/09/18 05:00 APTT 34.1 Seconds (25.6-37.1) 08/09/18 05:00 - Constitutional Appears: Non-toxic, No Acute Distress - Head Exam Head Exam: ATRAUMATIC, NORMOCEPHALIC - Eye Exam Eye Exam: EOMI - ENT Exam ENT Exam: Mucous Membranes Moist - Neck Exam Neck Exam: Full ROM - Respiratory Exam Respiratory Exam: NORMAL BREATHING PATTERN. absent: Accessory Muscle Use, Respiratory Distress - GI/Abdominal Exam GI & Abdominal Exam: Soft. absent: Distended, Firm, Guarding, Rigid, Tenderness, Rebound Additional comments: R side jaswant 15cc/12hr bilious - Extremities Exam Extremities Exam: absent: Calf Tenderness, Pedal Edema - Neurological Exam Neurological Exam: Alert, Awake, Oriented x3 Assessment and Plan - Assessment and Plan (Free Text) Assessment: 63F w. cholecystitis, s/p lap casandra POD#2 -Jaswant 15cc/12hr bilious, likely remove later today -c/w regular diet -f/u CBC -will likely be cleared for d/c this afternoon -will d/w attending Luis Fernando PGY4 <Tommy Armijo - Last Filed: 08/12/18 13:31> Subjective - Date & Time of Evaluation Time of Evaluation: 13:20 - Subjective Subjective: Patient was seen and examined at the bedside. Agree with resident's note above. Objective - Vital Signs/Intake and Output Vital Signs (last 24 hours): Temp Pulse Resp BP Pulse Ox 98.3 F 82 18 114/71 94 L 08/12/18 12:10 08/12/18 12:10 08/12/18 12:10 08/12/18 12:10 08/12/18 12:10 - Medications Medications: Current Medications Acetaminophen (Tylenol 325mg Tab) 650 mg PO Q6 PRN PRN Reason: Pain, Mild (1-3) Last Admin: 08/09/18 17:02 Dose: 650 mg Acetylcysteine (Acetylcysteine 20%) 2 ml INH RBID PRN PRN Reason: Cough and congestion Last Admin: 08/10/18 21:18 Dose: 2 ml Albuterol/Ipratropium (Duoneb 3 Mg/0.5 Mg (3 Ml) Ud) 3 ml INH RQ6 PRN PRN Reason: Shortness of Breath Last Admin: 08/10/18 21:18 Dose: 3 ml Alprazolam (Xanax) 0.5 mg PO Q8 PRN PRN Reason: Anxiety Stop: 08/12/18 23:55 Last Admin: 08/12/18 01:04 Dose: 0.5 mg Docusate Sodium (Colace) 100 mg PO BID RON Last Admin: 08/12/18 09:02 Dose: 100 mg Hydromorphone HCl (Dilaudid) 0.5 mg IVP Q4H PRN PRN Reason: Pain, severe (8-10) Last Admin: 08/11/18 03:20 Dose: 0.5 mg Ampicillin Sodium/Sulbactam (Sodium 1.5 gm/ Sodium Chloride) 100 mls @ 100 mls/hr IVPB Q6 RON; Protocol Last Admin: 08/12/18 09:03 Dose: 100 mls/hr Nicotine (Nicoderm Cq) 1 patch TD DAILY [facility]ON Last Admin: 08/12/18 09:02 Dose: 1 patch Ondansetron HCl (Zofran Inj) 4 mg IVP Q4 PRN PRN Reason: Nausea/Vomiting Last Admin: 08/09/18 00:27 Dose: 4 mg Oxycodone/Acetaminophen (Percocet 5/325 Mg Tab) 1 tab PO Q4 PRN PRN Reason: Pain, moderate (4-7) Stop: 08/13/18 14:26 Last Admin: 08/11/18 12:10 Dose: 1 tab Pantoprazole Sodium (Protonix Ec Tab) 40 mg PO DAILY RON Last Admin: 08/12/18 09:02 Dose: 40 mg - Labs Labs: 08/12/18 08:33 08/12/18 05:25 PT 15.9 Seconds (9.8-13.1) H 08/09/18 05:00 INR 1.4 08/09/18 05:00 APTT 34.1 Seconds (25.6-37.1) 08/09/18 05:00 - GI/Abdominal Exam Additional comments: soft, bonny-incisional tenderness, ND, BS+, no rebound, no guarding, incisions clean, no erythema, no drainage, Jaswant drain in place with minimal serosangenous fluid Assessment and Plan - Assessment and Plan (Free Text) Plan: - removed Jaswant drain - Pain control - Continue diet - Patient is clear for discharge home from the general surgery stand point - Augmentin for 1 week on discharge - Patient will follow up with Dr. Middleton in the office in 10 days to 2 weeks for post-op visit
[2018-08-12] MEDS: Pantoprazole 40 mg EC Tab PO SCH (09:02)
[2018-08-12 09:09] LABS: HEMOGLOBIN 12.6 g/dL (12.0-16.0); MEAN CELL VOLUME 94.7 fl (81.0-99.0); MEAN CORPUSCULAR HEMOGLOBIN 31.3 pg (27.0-31.0); MEAN CORPUSCULAR HGB CONC 33.1 g/dL (33.0-37.0); RBC 4.02 Mil/uL (3.80-5.20); RED CELL DISTRIBUTION WIDTH 13.7 % (11.5-14.5); WHITE BLOOD COUNT 8.2 K/uL (4.8-10.8)
[2018-08-12 12:10] VITALS: BP 114/71; PULSE 82; TEMP 98.3; O2SAT 94
--- NOTE | 2018-08-20 11:03 | OP ---
OPERATIVE REPORT -Operative Report Date of Procedure: 08/10/18 Surgeon: Alvin Middleton Special Shopper: Luis Fernando Armijo PGY4 Type of Anesthesia: General Endo, Local Anesthesiologist: Barbara Garcia MD Pre-Operative Diagnosis: Acute cholecystitis Operative Findings: Gangrenous necrotic gallbladder Post-Operative Diagnosis: same Operation Performed: laparoscopic cholecystectomy Description of Procedure: The patient was brought to the Operating Room and after successful induction of general endotracheal anesthesia was obtained, the abdomen was prepped and draped in the usual manner. A Veress needle was inserted in the periumbilical region and making sure that it was in the intra-abdominal cavity adequate pneumoperitoneum was obtained. The needle was removed. A periumbilical incision was made and a 10 mm trocar was inserted. A full laparoscopy did not reveal any gross intra-abdominal pathology. So at this point under direct visualization, another 10 mm trocar was inserted just right of the midline in the epigastric region and two 5 mm trocars were inserted in the right upper quadrant. At this point dissection was carried out of the triangle of Calot. The cystic duct was visualized and dissected down to the confluence of the common bile duct. The cystic duct was triply clipped and divided and continuing dissection at the triangle of Calot, the cystic artery was visualized, triply clipped and divided. The gallbladder was then dissected from the gallbladder fossa using hemocautery and obtaining hemostasis the same way. Just before removing the whole gallbladder from its fossa, the area was copiously irrigated, hemostasis was obtained and then the gallbladder was totally removed from its fossa. The gallbladder was removed from the peritoneal cavity via the umbilical incision and once this was done, the trocar was reinserted and the right upper quadrant was copiously irrigated and suctioned. Once this was done and making sure that hemostasis was excellent, all trocars were removed under direct visualization and the umbilical and epigastric incisions were closed with #10 Vicryl. The skin was approximated using fine nylon. All incisions were infiltrated with Marcaine. Specimen/Specimens Removed: gallbladder Estimated Blood Loss: EBL {In ML}: 300 Blood Products Given: N/A Drains Used: Jaswant Post-Op Condition: Good Date of Surgery/Procedure: 08/10/18 Time of Surgery/Procedure: 14:19 [facility] Middleton [facility]
== END 2018-08-12 15:00 | disposition home or self-care (01) | DRG 418 ==
LOC: H.ER 12:43 → H.ERHOLD 16:14 → H.TEL 22:45 → OBSVTOIN 08-08 14:07
PROVIDERS: ADMIT Family Medicine; ATTEND Family Medicine
PROC: 0FT44ZZ Resection of Gallbladder, Percutaneous Endoscopic Approach (ICD-10-PCS; principal; 2018-08-10 12:00)
DX: K80.00 Calculus of gallbladder with acute cholecystitis without obstruction (principal); K57.92 Diverticulitis of intestine, part unspecified, without perforation or abscess without bleeding; D68.9 Coagulation defect, unspecified; K82.A1 Gangrene of gallbladder in cholecystitis; K21.9 Gastro-esophageal reflux disease without esophagitis; R07.89 Other chest pain; K29.00 Acute gastritis without bleeding; J44.9 Chronic obstructive pulmonary disease, unspecified; F41.9 Anxiety disorder, unspecified; M17.0 Bilateral primary osteoarthritis of knee; F17.210 Nicotine dependence, cigarettes, uncomplicated